=== PATIENT | male | born 1980 | race Two or more races ===

== ENCOUNTER 2017-08-27 15:20 | Emergency (ER) | payer BC, OTHER ==
[2017-08-27 15:20] VITALS: BP 126/93
[~2017-08-27 15:20] MED LIST: MELO7.5T29 PO
[2017-08-27] MEDS ORDERED: IV NORMAL SALINE 1,000ML 1,000 ML IV ONE (15:45)
--- NOTE | 2017-08-27 15:57 | RAD ---
Portable chest, 08/27/2017: HISTORY: Syncope, shortness of breath The heart size and pulmonary vascularity are normal. No pulmonary infiltrate is seen. There is no evidence of pleural fluid. IMPRESSION: No acute cardiopulmonary abnormality is detected. Electronically signed by: Marck Wray MD (08/27/2017 3:54 PM) [facility]
[2017-08-27 15:58] LABS: BASO # 0.1 x10^3/uL (0.0-0.2); BASO % 1 % (0-3); EOS # 0.2 x10^3/uL (0.0-0.7); EOS % 2 % (0-3); HEMATOCRIT 41.9 % (39.0-53.0); HEMOGLOBIN 13.9 g/dL (13.0-17.5); LYMPH % 18 % (24-48); MEAN CORPUSCULAR HEMOGLOBIN 27 pg (25-35); MEAN CORPUSCULAR HGB CONC 33 g/dL (31-37); MEAN CORPUSCULAR VOLUME 81 fL (79-100); MONO # 0.5 x10^3/uL (0.0-1.1); MONO % 5 % (0-9); NEUT % 74 % (31-73); PLATELET COUNT 296 x10^3/uL (140-400); RED BLOOD COUNT 5.15 x10^6/uL (4.30-5.70); RED CELL DISTRIBUTION WIDTH 14.8 % (11.5-14.5); WHITE BLOOD COUNT 10.7 x10^3/uL (4.0-11.0)
[2017-08-27 16:11] LABS: ALBUMIN 4.5 g/dL (3.4-5.0); ALBUMIN/GLOBULIN RATIO 1.3 (1.0-1.7); CALCIUM 9.4 mg/dL (8.5-10.1); CREATININE 1.6 mg/dL (0.7-1.3); GFR 48.4; POTASSIUM 4.2 mmol/L (3.5-5.1); TOTAL BILIRUBIN 0.6 mg/dL (0.2-1.0)
--- NOTE | 2017-08-27 16:37 | ED.ADGEN ---
Past History Past Medical History: Hypertension Past Surgical History: Knee Replacement Alcohol Use: None Drug Use: None Adult General Chief Complaint Chief Complaint Hypertension HPI HPI Patient is a 37-year-old male who presents with altered mental status, decreased mental status sonorous respirations per family members. EMS were contacted us patient appeared to have sonorous respirations with prolonged pauses and was difficult to arouse. Patient to being diagnosed with obstructive sleep apnea states he was told he snores heavy with frequent pauses. Patient reported to be hypoxic and hypercapnic on EMS arrival. Return to baseline mental status and ED. Patient states he did not sleep well last evening felt fatigued this morning. Went to work and came home this afternoon and took oxycodone prior to going to bed. Patient states this is different than his normal routine. Patient reports having surgical pins removed from his left tibia 3 weeks ago. He states symptoms have largely improved but he has been on his feet pulses in required and oxycodone. Denies chest pain, shortness of breath palpitations, headache. No history of DVT or PE. Denies tongue laceration , loss of bowel or bladder movement. No other acute symptoms or complaints.[] Review of Systems Review of Systems History of symptoms as per history of present illness. All other review symptoms are negative. All other systems were reviewed and found to be within normal limits, except as documented in this note. Current Medications Current Medications Current Medications Medications (Trade) Dose Ordered Sig/Juany Start Time Stop Time Status Last Admin Dose Admin Sodium Chloride 1,000 ml @ 1,000 mls/hr 1X ONCE 08/27/17 15:45 08/27/17 16:44 DC 08/27/17 15:45 1,000 MLS/HR Allergies Allergies Allergies Coded Allergies Type Severity Reaction Last Updated Verified No Known Drug Allergies 02/03/15 No Physical Exam Physical Exam Constitutional: Well developed, well nourished, no acute distress, non-toxic appearance. [] HENT: Normocephalic, bilateral external ears normal, oropharynx moist, no oral exudates, nose normal. [] Eyes: PERRLA, EOMI, conjunctiva normal, no discharge. [] Neck: Normal range of motion, no tenderness, supple, no stridor. [] Cardiovascular:Heart rate regular rhythm, no murmur [] Lungs & Thorax: Bilateral breath sounds clear to auscultation [] Abdomen: Bowel sounds normal, soft, no tenderness, no masses, no pulsatile masses. [] Skin: Warm, dry, no erythema, no rash. [] Back: No tenderness, no CVA tenderness. [] Extremities: Left leg, healing surgical incision from pain removal, negative Homans signs. Headache[] Neurologic: Alert and oriented X 3, normal motor function, normal sensory function, no focal deficits noted. [] Psychologic: Affect normal, judgement normal, mood normal. [] Current Patient Data Lab Results Laboratory Tests Test 08/27/17 15:45 White Blood Count 10.7 x10^3/uL (4.0-11.0) Red Blood Count 5.15 x10^6/uL (4.30-5.70) Hemoglobin 13.9 g/dL (13.0-17.5) Hematocrit 41.9 % (39.0-53.0) Mean Corpuscular Volume 81 fL (79-100) Mean Corpuscular Hemoglobin 27 pg (25-35) Mean Corpuscular Hemoglobin Concent 33 g/dL (31-37) Red Cell Distribution Width 14.8 % (11.5-14.5) H Platelet Count 296 x10^3/uL (140-400) Neutrophils (%) (Auto) 74 % (31-73) H Lymphocytes (%) (Auto) 18 % (24-48) L Monocytes (%) (Auto) 5 % (0-9) Eosinophils (%) (Auto) 2 % (0-3) Basophils (%) (Auto) 1 % (0-3) Neutrophils # (Auto) 8.0 x10^3uL (1.8-7.7) H Lymphocytes # (Auto) 2.0 x10^3/uL (1.0-4.8) Monocytes # (Auto) 0.5 x10^3/uL (0.0-1.1) Eosinophils # (Auto) 0.2 x10^3/uL (0.0-0.7) Basophils # (Auto) 0.1 x10^3/uL (0.0-0.2) D-Dimer (Martina) 0.51 mg/L (0.00-0.50) H Sodium Level 144 mmol/L (136-145) Potassium Level 4.2 mmol/L (3.5-5.1) Chloride Level 107 mmol/L (98-107) Carbon Dioxide Level 27 mmol/L (21-32) Anion Gap 10 (6-14) Blood Urea Nitrogen 19 mg/dL (8-26) Creatinine 1.6 mg/dL (0.7-1.3) H Estimated GFR (Cockcroft-Gault) 48.4 BUN/Creatinine Ratio 12 (6-20) Glucose Level 270 mg/dL (70-99) H Calcium Level 9.4 mg/dL (8.5-10.1) Total Bilirubin 0.6 mg/dL (0.2-1.0) Aspartate Amino Transferase (AST) 28 U/L (15-37) Alanine Aminotransferase (ALT) 60 U/L (16-63) Alkaline Phosphatase 84 U/L (46-116) Creatine Kinase 132 U/L (39-308) Total Protein 8.0 g/dL (6.4-8.2) Albumin 4.5 g/dL (3.4-5.0) Albumin/Globulin Ratio 1.3 (1.0-1.7) EKG EKG [EKG: NAD] Radiology/Procedures Radiology/Procedures CXR: NAD [] Course & Med Decision Making Course & Med Decision Making Pertinent Labs and Imaging studies reviewed. (See chart for details) [Stable vital signs in the emergency department with return to baseline mental status. Lab work reviewed. Suspect symptoms are likely related to combination of sleep apnea narcotic pain medication. Admission offered for further evaluation and treatment. Patient declines admission states he feels great and does not currently have any symptoms. Agrees to follow-up with local primary care physician and to return should symptoms worsen.] Final Impression Final Impression [1. Altered mental status 2. hypoxia while sleeping] Dragon Disclaimer Dragon Disclaimer This electronic medical record was generated, in whole or in part, using a voice recognition dictation system. TANG POLLARD DO August 27, 2017 16:37
== END 2017-08-27 17:05 | disposition home or self-care (01) ==
LOC: ER 15:20
DX: R41.82 Altered mental status, unspecified (principal); R09.02 Hypoxemia; I10 Essential (primary) hypertension; G47.33 Obstructive sleep apnea (adult) (pediatric)
CPT/HCPCS: 36415; 71045; 80053; 82550; 84146; 85025; 85379; 96360; 99285-25; J7030

== ENCOUNTER 2017-11-15 16:26 | Inpatient (IN) | payer OTHER ==
[~2017-11-15] VITALS: Ht 185.4 cm; Wt 144.7 kg
[2017-11-15] MEDS ORDERED: dilTIAZem 25 MG/5 ML VIAL ONE (16:36)
[2017-11-15] MEDS ORDERED: IV NORMAL SALINE 500ML 500 ML IV ONE (16:45)
--- NOTE | 2017-11-15 16:51 | EKG ---
[address] [address] Test Date: 2017-11-15 Test Time: 16:32:59 Pat Name: BARBARA RECINOS Department: Room: Gender: M Disability Examiner: : 1980 Requested By: DANETTE LEWIS Order Number: [id number] Reading MD: Measurements Intervals Independence Rate: 168 P: SD: QRS: -19 QRSD: 90 T: 52 QT: 282 QTc: 478 Interpretive Statements IRREGULAR RHYTHM, NO P-WAVE FOUND LEFTWARD AXIS LOW LIMB LEAD VOLTAGE QRS(T) CONTOUR ABNORMALITY CONSIDER ANTEROSEPTAL MYOCARDIAL DAMAGE POSSIBLY ABNORMAL ECG RI6.01 Unconfirmed report No previous ECG available for comparison
[2017-11-15 16:54] LABS: BASO % 1 % (0-3); EOS # 0.1 x10^3/uL (0.0-0.7); EOS % 1 % (0-3); HEMATOCRIT 41.4 % (39.0-53.0); HEMOGLOBIN 13.4 g/dL (13.0-17.5); LYMPH # 1.7 x10^3/uL (1.0-4.8); LYMPH % 25 % (24-48); MEAN CORPUSCULAR HEMOGLOBIN 26 pg (25-35); MEAN CORPUSCULAR HGB CONC 33 g/dL (31-37); MEAN CORPUSCULAR VOLUME 80 fL (79-100); MONO # 0.7 x10^3/uL (0.0-1.1); MONO % 10 % (0-9); NEUT # 4.1 x10^3uL (1.8-7.7); NEUT % 62 % (31-73); PLATELET COUNT 246 x10^3/uL (140-400); RED BLOOD COUNT 5.17 x10^6/uL (4.30-5.70); RED CELL DISTRIBUTION WIDTH 15.4 % (11.5-14.5); WHITE BLOOD COUNT 6.5 x10^3/uL (4.0-11.0)
[2017-11-15] MEDS ORDERED: dilTIAZem VIAL 125 MG in IV DEXTROSE 5% 100 ML IV ONE ×4 (17:00)
[2017-11-15] MEDS ORDERED: dilTIAZem 25 MG/5 ML VIAL IVP ONE (17:00)
--- NOTE | 2017-11-15 17:04 | RAD ---
Portable chest, 11/15/2017: HISTORY: Atrial fibrillation Comparison is made to a study from 08/27/2017. The heart size is within normal limits. There is mild tortuosity of the thoracic aorta. No pulmonary infiltrate is seen. There is no evidence of pleural fluid. IMPRESSION: No acute cardiopulmonary abnormality is detected. Electronically signed by: Marck Wray MD (11/15/2017 5:00 PM) [facility]
--- NOTE | 2017-11-15 17:07 | PHYS DOC ---
Past History Past Medical History: Diabetes, High Cholesterol, Hypertension Past Surgical History: Knee Replacement Alcohol Use: Rarely Drug Use: Marijuana Adult General Chief Complaint Chief Complaint: Palpitations HPI HPI 37-year-old male patient with history of hypertension, dyslipidemia and diabetes mellitus complaining of intermittent episodes of palpitation for the last 1 week that usually lasts about 10 to 20 minutes and happens several times a day without chest pain, dizziness, weakness, nausea, shortness of breath, focal neuro deficit. Patient denies using drugs or alcohol or overusing caffeine. Patient does not not have history of arrhythmia. Patient had appointment with his primary care physician for this problem tomorrow but his mother recommended to come to ER for more evaluation. Review of Systems Review of Systems Constitutional: Denies fever or chills [] Eyes: Denies change in visual acuity, redness, or eye pain [] HENT: Denies nasal congestion or sore throat [] Respiratory: Denies cough or shortness of breath [] Cardiovascular: No additional information not addressed in HPI [] GI: Denies abdominal pain, nausea, vomiting, bloody stools or diarrhea [] : Denies dysuria or hematuria [] Musculoskeletal: Denies back pain or joint pain [] Integument: Denies rash or skin lesions [] Neurologic: Denies headache, focal weakness or sensory changes [] Endocrine: Denies polyuria or polydipsia [] All other systems were reviewed and found to be within normal limits, except as documented in this note. Current Medications Current Medications Current Medications Medications (Trade) Dose Ordered Sig/Juany Start Time Stop Time Status Last Admin Dose Admin Diltiazem HCl (Cardizem) 25 mg STK-MED ONCE 11/15/17 16:36 11/15/17 16:37 DC Diltiazem HCl 125 mg/Dextrose 125 ml @ 5 mls/hr 1X ONCE 11/15/17 17:00 11/16/17 17:59 11/15/17 17:01 5 MLS/HR Sodium Chloride 500 ml @ 0 mls/hr 1X ONCE 11/15/17 16:45 11/15/17 16:47 DC 11/15/17 16:45 999 MLS/HR Allergies Allergies Allergies Coded Allergies Type Severity Reaction Last Updated Verified No Known Drug Allergies 11/15/17 No Physical Exam Physical Exam Constitutional: Well developed, well nourished, no acute distress, non-toxic appearance, morbidly obese. [] HENT: Normocephalic, atraumatic, oropharynx moist, no oral exudates, nose normal. [] Eyes: PERRLA, EOMI, conjunctiva normal, no discharge. [] Neck: Normal range of motion, no tenderness, supple, no stridor. [] Cardiovascular: Irregularly irregular with tachycardia, no murmur [] Lungs & Thorax: Bilateral breath sounds clear to auscultation [] Abdomen: Bowel sounds normal, soft, no tenderness, no masses, no pulsatile masses. [] Skin: Warm, dry, no erythema, no rash. [] Back: No tenderness, no CVA tenderness. [] Extremities: No tenderness, no cyanosis, no clubbing, ROM intact, no edema. [] Neurologic: Alert and oriented X 3, normal motor function, normal sensory function, no focal deficits noted. [] Psychologic: Affect normal, judgement normal, mood normal. [] Current Patient Data Vital Signs Vital Signs Date Time Temp Pulse Resp B/P (MAP) Pulse Ox O2 Delivery O2 Flow Rate FiO2 11/15/17 16:45 178 164/106 11/15/17 16:28 98.1 18 96 Room Air Lab Results Laboratory Tests Test 11/15/17 16:40 White Blood Count 6.5 x10^3/uL (4.0-11.0) Red Blood Count 5.17 x10^6/uL (4.30-5.70) Hemoglobin 13.4 g/dL (13.0-17.5) Hematocrit 41.4 % (39.0-53.0) Mean Corpuscular Volume 80 fL (79-100) Mean Corpuscular Hemoglobin 26 pg (25-35) Mean Corpuscular Hemoglobin Concent 33 g/dL (31-37) Red Cell Distribution Width 15.4 % (11.5-14.5) H Platelet Count 246 x10^3/uL (140-400) Neutrophils (%) (Auto) 62 % (31-73) Lymphocytes (%) (Auto) 25 % (24-48) Monocytes (%) (Auto) 10 % (0-9) H Eosinophils (%) (Auto) 1 % (0-3) Basophils (%) (Auto) 1 % (0-3) Neutrophils # (Auto) 4.1 x10^3uL (1.8-7.7) Lymphocytes # (Auto) 1.7 x10^3/uL (1.0-4.8) Monocytes # (Auto) 0.7 x10^3/uL (0.0-1.1) Eosinophils # (Auto) 0.1 x10^3/uL (0.0-0.7) Basophils # (Auto) 0.0 x10^3/uL (0.0-0.2) EKG EKG EKG interpreted by me. EKG at 1632 showed atrial flutter patient with RVR at rate of 168, left powers axis, no QRS or take, poor R-wave progress in anteroseptal leads Radiology/Procedures Radiology/Procedures [[address] [address] IMAGING REPORT Signed PATIENT: BARBARA RECINOS ACCOUNT: [id number] : 1980 LOCATION: ER AGE: 37 SEX: M EXAM STATUS: REG ER ORD. PHYSICIAN: DANETTE LEWIS MD REASON: atrial fibrillation with RVR PROCEDURE: PORTABLE CHEST 1V Portable chest, 11/15/2017: HISTORY: Atrial fibrillation Comparison is made to a study from 08/27/2017. The heart size is within normal limits. There is mild tortuosity of the thoracic aorta. No pulmonary infiltrate is seen. There is no evidence of pleural fluid. IMPRESSION: No acute cardiopulmonary abnormality is detected. Electronically signed by: Marck Wray MD (11/15/2017 5:00 PM) [facility] DICTATED AND SIGNED BY: MARCK WRAY MD DATE: 11/15/17 1659 CC: DANETTE LEWIS MD; TITO AGUILERA ~ ] Course & Med Decision Making Course & Med Decision Making Pertinent Labs and Imaging studies reviewed. (See chart for details) Evaluation of patient in ER showed 37-year-old male patient with morbid obesity and multiple medical problems complaining of intermittent episodes of palpitation without other symptoms. Patient had atrial fibrillation with RVR at rate of 170s with a stable blood pressure and treated with Cardizem bolus and drip with decrease of heart rate to 130s. Patient had mild elevation of BNP and positive drug screen for marijuana and opiate. Dr. Chapa was informed at 1645 and agreed with plan of admission. Patient and his family informed about plan of care and needs for admission. [] Dragon Disclaimer Dragon Disclaimer This electronic medical record was generated, in whole or in part, using a voice recognition dictation system. Departure Departure: Impression: Primary Impression: Atrial fibrillation with RVR Additional Impressions: Elevated brain natriuretic peptide (BNP) level Diabetes mellitus Morbid obesity Marijuana abuse Disposition: 09 ADMITTED INPATIENT (at 1646) Admitting Physician: Mary Chapa (accepted admission at 1646) Condition: GUARDED Referrals: TITO AGUILERA (PCP) Problem Qualifiers DANETTE LEWIS MD Nov 15, 2017 17:07
[2017-11-15 17:23] LABS: ALBUMIN/GLOBULIN RATIO 1.1 (1.0-1.7); CALCIUM 9.2 mg/dL (8.5-10.1); CREATININE 1.1 mg/dL (0.7-1.3); GFR 74.5; MAGNESIUM 1.8 mg/dL (1.8-2.4); POTASSIUM 3.7 mmol/L (3.5-5.1); TOTAL BILIRUBIN 1.9 mg/dL (0.2-1.0); TOTAL PROTEIN 7.8 g/dL (6.4-8.2)
[2017-11-15 20:30] VITALS: BP 130/101
[2017-11-15] MEDS ORDERED: CLON1PAT3 TD (20:53)
[2017-11-15] MEDS ORDERED: AMLO10TA2 PO (20:58)
[2017-11-15] MEDS ORDERED: METF10003 PO (20:58)
[2017-11-15] MEDS ORDERED: IRBE300T3 PO (20:58)
[2017-11-15 21:30] VITALS: BP 166/112
[2017-11-15 22:30] VITALS: BP 155/110
[2017-11-15 23:31] LABS: AMPHETAMINE/METHAMPHETAMINE NEG (NEG); BARBITURATES NEG (NEG); BENZODIAZEPINES NEG (NEG); CANNABINOIDS POS (NEG); COCAINE NEG (NEG); METHADONE NEG (NEG); OPIATES POS (NEG); PHENCYCLIDINE NEG (NEG)
[2017-11-16] VITALS (12 sets, daily range): BP systolic 135–170; BP diastolic 87–103
[2017-11-16] MEDS ORDERED: dilTIAZem VIAL 125 MG in IV DEXTROSE 5% 100 ML IV PRN (01:30)
[2017-11-16] MEDS ORDERED: metFORMIN 500 MG TABLET PO SCH (08:00)
[2017-11-16] MEDS ORDERED: LOSARTAN 50 MG TABLET. PO SCH (09:00)
[2017-11-16] MEDS ORDERED: amLODIPine BESYLATE 10 MG TABLET PO SCH (09:00)
--- NOTE | 2017-11-16 09:29 | PDOC2 ---
CONSULT Date of Admission DATE: 11/16/17 TIME: 09:13 Reason for Consult: atrial fibrillation with RVR Problem List Problems Medical Problems: (1) Atrial fibrillation with RVR Status: Acute (2) Diabetes mellitus Status: Acute (3) Elevated brain natriuretic peptide (BNP) level Status: Acute (4) Marijuana abuse Status: Acute (5) Morbid obesity Status: Acute History of Present Illness Mr Garcia is a 37 year old male with history of hypertension and diabetes who presented to the ED for evaluation of palpitations. He reports racing of his heart off and on for a week. He was convinced to present for evaluation by his mother. He denies any chest discomfort, dyspnea, lightheadedness or syncope. He denies any congestive symptoms and regularly sleeps on 1-2 pillows for comfort. He denies any new issues with functionality though he reports being somewhat limited due to knee pain. He was found to be positive on his UDS for opiates and THC. He reports taking opiates for his knee pain but denies any use of amphetamines or cocaine. Cardiovascular: HTN Endocrine: Diabetes Past Surgical History left knee surgery otherwise negative Family History father SCD at age 47 but he is unsure of the underlying cause. He denies any other significant history. Social History non smoker, denies ETOH, admits to opiate and marijuana use. Current Medications Current Medications Diltiazem HCl (Cardizem) 20 mg 1X ONCE IVP Last administered on 11/15/17at 16:45 ; Start 11/15/17 at 17:00; Stop 11/15/17 at 17:01; Status DC Sodium Chloride 500 ml @ 0 mls/hr 1X ONCE IV Last administered on 11/15/17at 16: 45; Start 11/15/17 at 16:45; Stop 11/15/17 at 16:47; Status DC Diltiazem HCl (Cardizem) 25 mg STK-MED ONCE .ROUTE ; Start 11/15/17 at 16:36; Stop 11/15/17 at 16:37; Status DC Diltiazem HCl 125 mg/Dextrose 125 ml @ 5 mls/hr 1X ONCE IV ; Start 11/15/17 at 17:00; Stop 11/15/17 at 17:00; Status DC Diltiazem HCl 125 mg/Dextrose 125 ml @ 5 mls/hr 1X ONCE IV Last administered on 11/15/17at 17:01; Start 11/15/17 at 17:00; Stop 11/16/17 at 17:59 Diltiazem HCl 125 mg/Dextrose 125 ml @ 5 mls/hr CONT PRN IV SEE I/O RECORD Last administered on 11/16/17at 01:28; Start 11/16/17 at 01:30 Amlodipine Besylate (Norvasc) 10 mg DAILY PO Last administered on 11/16/17at 07: 59; Start 11/16/17 at 09:00 Clonidine HCl (Catapres Tts-3) 1 patch WEEKLY TD ; Start 11/20/17 at 09:00 Losartan Potassium (Cozaar) 100 mg DAILY PO Last administered on 11/16/17at 07:59 ; Start 11/16/17 at 09:00 Metformin HCl (Glucophage) 1,000 mg BIDWMEALS PO Last administered on 11/16/17at 07:59; Start 11/16/17 at 08:00 Active Scripts Active Reported Amlodipine Besylate 10 Mg Tablet 1 Tab PO DAILY Irbesartan 300 Mg Tablet 1 Tab PO DAILY Metformin Hcl 1,000 Mg Tablet 1 Tab PO BID Clonidine Tts-3 (Clonidine) 1 Each Patch.tdwk 1 Patch TD WEEKLY Allergies: Coded Allergies: No Known Drug Allergies (Unverified , 11/15/17) Review of System as per HPI or negative General: Alert, Oriented X3, Cooperative, No acute distress HEENT: Atraumatic, EOMI, Mucous membr. moist/pink Lungs: Clear to auscultation, Normal air movement Heart: Regular rate, Normal S1, Normal S2, No murmurs Abdomen: Normal bowel sounds, Soft, No tenderness Extremities: No cyanosis, No edema, Normal pulses Neuro: Normal speech, Strength at 5/5 X4 ext Psych/Mental Status: Mental status NL, Mood NL VITALS Vital Signs Date Time Temp Pulse Resp B/P (MAP) Pulse Ox O2 Delivery O2 Flow Rate FiO2 11/16/17 09:04 126 143/92 (109) 11/16/17 08:13 Room Air 11/16/17 06:00 18 94 11/15/17 20:30 98.4 11/15/17 18:38 2.0 Labs Laboratory Tests Test 11/15/17 16:40 11/15/17 17:04 11/15/17 20:30 11/15/17 22:42 White Blood Count 6.5 x10^3/uL (4.0-11.0) Red Blood Count 5.17 x10^6/uL (4.30-5.70) Hemoglobin 13.4 g/dL (13.0-17.5) Hematocrit 41.4 % (39.0-53.0) Mean Corpuscular Volume 80 fL (79-100) Mean Corpuscular Hemoglobin 26 pg (25-35) Mean Corpuscular Hemoglobin Concent 33 g/dL (31-37) Red Cell Distribution Width 15.4 % (11.5-14.5) Platelet Count 246 x10^3/uL (140-400) Neutrophils (%) (Auto) 62 % (31-73) Lymphocytes (%) (Auto) 25 % (24-48) Monocytes (%) (Auto) 10 % (0-9) Eosinophils (%) (Auto) 1 % (0-3) Basophils (%) (Auto) 1 % (0-3) Neutrophils # (Auto) 4.1 x10^3uL (1.8-7.7) Lymphocytes # (Auto) 1.7 x10^3/uL (1.0-4.8) Monocytes # (Auto) 0.7 x10^3/uL (0.0-1.1) Eosinophils # (Auto) 0.1 x10^3/uL (0.0-0.7) Basophils # (Auto) 0.0 x10^3/uL (0.0-0.2) Prothrombin Time 12.2 SEC (9.4-11.4) Prothromb Time International Ratio 1.2 (0.9-1.1) Sodium Level 139 mmol/L (136-145) Potassium Level 3.7 mmol/L (3.5-5.1) Chloride Level 104 mmol/L (98-107) Carbon Dioxide Level 26 mmol/L (21-32) Anion Gap 9 (6-14) Blood Urea Nitrogen 10 mg/dL (8-26) Creatinine 1.1 mg/dL (0.7-1.3) Estimated GFR (Cockcroft-Gault) 74.5 BUN/Creatinine Ratio 9 (6-20) Glucose Level 115 mg/dL (70-99) Calcium Level 9.2 mg/dL (8.5-10.1) Magnesium Level 1.8 mg/dL (1.8-2.4) Total Bilirubin 1.9 mg/dL (0.2-1.0) Aspartate Amino Transf (AST/SGOT) 27 U/L (15-37) Alanine Aminotransferase (ALT/SGPT) 33 U/L (16-63) Alkaline Phosphatase 79 U/L (46-116) Creatine Kinase 97 U/L (39-308) Creatine Kinase MB (Mass) 1.8 ng/mL (0.0-3.6) Creatine Kinase MB Relative Index 1.9 % (0-4) Troponin I Quantitative 0.020 ng/mL (0-0.055) < 0.017 ng/mL (0-0.055) EF-Gdu-W-Type Natriuretic Peptide 2088 pg/mL (0-124) Total Protein 7.8 g/dL (6.4-8.2) Albumin 4.0 g/dL (3.4-5.0) Albumin/Globulin Ratio 1.1 (1.0-1.7) Glucose (Fingerstick) 118 mg/dL (70-99) Urine Opiates Screen Pos (NEG) Urine Methadone Screen Neg (NEG) Urine Barbiturates Neg (NEG) Urine Phencyclidine Screen Neg (NEG) Urine Amphetamine/Methamphetamine Neg (NEG) Urine Benzodiazepines Screen Neg (NEG) Urine Cocaine Screen Neg (NEG) Urine Cannabinoids Screen Pos (NEG) Urine Ethyl Alcohol Neg (NEG) Test 11/15/17 23:55 Troponin I Quantitative < 0.017 ng/mL (0-0.055) Images CXR - no acute abn EKG - atrial fibrillation with RVR Assessment/Plan 1. Atrial fibrillation with RVR unknown duration - Continue cardizem, add metoprolol and 1x digoxin. Add Eliquis for stroke prophylaxis. Check echocardiogram. Plan for MCT on discharge to evaluate AF burden. 2. elevated BNP - no pulmonary congestion on CXR 3. accelerated hypertension - on multiple meds 4. diabetes mellitus - per IM 5. substance abuse - cessation encouraged. SUNNY DARBY APRN Nov 16, 2017 09:29
[2017-11-16] MEDS ORDERED: DIGOXIN IV 500 MCG/2 ML AMPUL. IV ONE (09:30)
[2017-11-16] MEDS ORDERED: APIXABAN 5 MG TABLET. PO SCH (10:00)
[2017-11-16] MEDS ORDERED: METOPROLOL TART IMMED RELEASE 25 MG TABLET PO SCH (10:00)
--- NOTE | 2017-11-16 15:41 | HP ---
ADMIT DATE: 11/15/2017 HISTORY OF PRESENT ILLNESS: The patient is a 37-year-old male patient who basically came to the Emergency Room complaining of intermittent episode of chest pain, palpitation. This has been going on for more than a week now, lasts about 10-20 minutes and happens several times a day without any chest pain, dizziness, weakness, nausea, shortness of breath, focal neurological deficit. He denied using any drugs or alcohol or over using caffeine. The patient does not have history of arrhythmia. He has had an appointment with his primary care physician for this problem; however, his mother urged him to come to the Emergency Room for more evaluation. In the Emergency Room, he was found to be in atrial fibrillation with rapid ventricular response for which he was started on Cardizem drip and was admitted to the ICU to continue with the Cardizem drip and start him on blood thinner and to consult the cardiology team. PAST MEDICAL HISTORY: Significant for hypertension, hyperlipidemia, and type 2 diabetes mellitus. PAST SURGICAL HISTORY: Significant for left knee surgery. ALLERGIES: He has no known drug allergies. MEDICATIONS: He is currently on following medications: He is on clonidine TTS 3 patch, 1 patch transdermal weekly; amlodipine besylate 10 mg once a day; irbesartan 300 mg daily and metformin 1000 mg p.o. b.i.d. FAMILY HISTORY: He has 3 sisters, all older. His oldest sister has hypothyroidism, obstructive sleep apnea and atrial fibrillation. The other two sisters are healthy. His father at the age of 47 because of massive heart attack. Mother is still alive at age of 62, is known to have bronchial asthma, diabetes mellitus, and COPD. SOCIAL HISTORY: He chews tobacco, smokes marijuana. Does not drink alcohol or use recreational drugs except that the marijuana. He works for a [employer] company. REVIEW OF SYSTEMS: The patient denied any blurring of vision, cataract, glaucoma or macular degeneration. Denied any earache, tinnitus or sensorineural deafness. Denied any nosebleeds, stuffy nose or postnasal drip. Denied any sore throat, sore tongue, toothache, hoarseness of voice or difficulty swallowing. Denied any nausea, vomiting, diarrhea or constipation. Denied any hematemesis, melena or hematochezia. Denied any dysuria, frequency or hematuria. Denied any chest pain, shortness of breath, orthopnea, paroxysmal nocturnal dyspnea. Denied any cough, phlegm or hemoptysis. Denied any dizziness, lightheadedness, or vertigo. Denied any chills, rigors, or fever. PHYSICAL EXAMINATION: GENERAL: On arrival to the Emergency Room, he looked well and was clearly in no apparent respiratory distress. VITAL SIGNS: His heart rate was up to 168, blood pressure 164/106, temperature was 98.1, respiratory rate was 18 and oxygen saturation was 96%. HEAD, EYES, EARS, NOSE, AND THROAT: Showed normocephalic, atraumatic. NECK: Supple. HEART: Regular first heart sound. Normal second heart sound with no gallop, rub or murmur. CHEST: Shows central trachea, equal bilateral expansion, air entry, vesicular sounds. No crepitation or rhonchi. ABDOMEN: Distended, soft, nontender. NEUROLOGIC: He is awake, alert, responding appropriately. Cranial nerves are intact. EXTREMITIES: He moves extremities without difficulty, ambulates without assistance or assistive devices. LABORATORY DATA: Showed serum sodium 139, potassium 3.7, chloride 104, bicarbonate 26, anion gap of 9, BUN 10, creatinine 1.1, estimated GFR was 74 mL per minute, his glucose was 115, calcium was 9.2. Total magnesium was 1.8. Total bilirubin is 1.9. AST, ALT, alkaline phosphatase were normal. His beta natriuretic peptide was 2088, troponin showed 0.020. His total protein was 7.8, albumin 4. White cell count was 6500, hemoglobin 13, hematocrit 41, MCV 80, and platelet count 246,000 with normal manual differential. Prothrombin time was 12.3, INR 1.2. Toxic screen was positive for opiates and cannabinoids; was negative for methadone, barbiturates, phencyclidine, methamphetamine, amphetamine, benzodiazepine, cocaine, and alcohol. His chest x-ray showed that the heart size is within normal limits. There is mild tortuosity of the thoracic aorta, no pulmonary infiltrates are seen. There is no evidence of pleural fluid. His EKG showed that he was in atrial flutter with RVR at a rate of 168 beats per minute, leftward axis deviation. No QRS. No ST segment elevation or depression and poor R-wave progression in the anteroseptal leads. ASSESSMENT AND PLAN: The patient was admitted with atrial fibrillation with rapid ventricular response. He has also had morbid obesity, marijuana abuse, diabetes mellitus, hyperlipidemia, and hypertension. He was given a bolus of Cardizem, was started on Cardizem drip and was admitted to the ICU to control the heart rate, start him on a blood thinner, to consult the cardiology team, to check his fasting lipid profile. MARCELLA MIDDLETON MD DR: MARKUS/yelitza JOB#: [id number] / [id number]
--- NOTE | 2017-11-16 19:24 | CARD ---
MR#: [id number] Date of Study: 11/16/2017 Ordering Physician: SUNNY DARBY, Referring Physician: MARCELLA MIDDLETON Tech: Nilsa Fuentes RDCS APPROVED REPORT EXAM: Two-dimensional and M-mode echocardiogram with Doppler and color Doppler. Other Information Quality : Good INDICATION Chest Pain 2D DIMENSIONS RVDd3.7 (2.9-3.5cm)Left Atrium(2D)5.2 (1.6-4.0cm) IVSd1.7 (0.7-1.1cm)Aortic Root(2D)3.7 (2.0-3.7cm) LVDd6.4 (3.9-5.9cm)LVOT Diameter2.7 (1.8-2.4cm) PWd1.7 (0.7-1.1cm)LVDs5.3 (2.5-4.0cm) FS (%) 20.0 %SV71.9 ml Aortic Valve AoV Peak Min.140.1cm/sAoV VTI20.2cm AO Peak GR.7.8mmHgLVOT Peak Min.139.3cm/s LVOT VTI 25.07cmAO Mean GR.5mmHg TYLER (VMAX)5.72qb9YUT (VTI)7.15cm2 Mitral Valve MV E Ongujuwa017.9cm/sMV DECEL [id number] MV A Velocity0.6cm/sE/A Rflbm352.5 Tricuspid Valve TR P. Hnitieie024kf/sRAP [id number] TR Peak Gr.95maXnTYWW93exFg LEFT VENTRICLE The Left Ventricle is mildly dilated. There is mild concentric left ventricular hypertrophy. Left lynda tricle systolic function is moderately impaired. The Ejection Fraction is 38 to 40%. There is global hypokinesis of the left ventricle. RIGHT VENTRICLE The right ventricle is mildly dilated. The right ventricular systolic function is normal. ATRIA The left atrium is mildly dilated. The right atrium is mildly dilated. The interatrial septum is inta ct with no evidence for an atrial septal defect or patent foramen ovale as noted on 2-D or Doppler im aging. AORTIC VALVE The aortic valve is calcified but opens well. Doppler and Color Flow revealed no significant aortic r egurgitation. There is no significant aortic valvular stenosis. MITRAL VALVE The mitral valve is normal in structure and function. There is no evidence of mitral valve prolapse. There is no mitral valve stenosis. Doppler and Color-flow revealed moderate mitral regurgitation. TRICUSPID VALVE The tricuspid valve is normal in structure and function. Doppler and Color Flow revealed mild to mode rate ricuspid regurgitation. There is moderate to severe pulmonary hypertension. The PA pressure was estimated at 50 mmHg. There is no tricuspid valve stenosis. PULMONIC VALVE The pulmonic valve is not well visualized. Doppler and Color Flow revealed trace pulmonic valvular re gurgitation. There is no pulmonic valvular stenosis. GREAT VESSELS The aortic root is normal in size. The ascending aorta is mildly dilated at 3.8 cm. The IVC is dilate d and unresponsive. PERICARDIAL EFFUSION There is no evidence of significant pericardial effusion. Critical Notification Critical Value: No <Conclusion> The Left Ventricle is mildly dilated. Left ventricle systolic function is moderately impaired. The Ejection Fraction is 38 to 40%. There is global hypokinesis of the left ventricle. There is mild concentric left ventricular hypertrophy. There is no significant aortic valvular stenosis. Doppler and Color Flow revealed no significant aortic regurgitation. Doppler and Color-flow revealed moderate mitral regurgitation. Doppler and Color Flow revealed mild to moderate ricuspid regurgitation. There is moderate to severe pulmonary hypertension. The PA pressure was estimated at 50 mmHg. The ascending aorta is mildly dilated at 3.8 cm. Signed by : Darnell Murrell MD Electronically Approved : 11/16/2017 17:26:13
--- NOTE | 2017-11-17 20:50 | DS ---
DATE OF DISCHARGE: 11/16/2017 HISTORY OF PRESENT ILLNESS: The patient is a 37-year-old male patient who was admitted to the Emergency Room with a complaint of intermittent episodes of chest pain and palpitation. Apparently, this has been going on for more than a week that lasts about 10-20 minutes and happens several times a day without any chest pain, dizziness, weakness, nausea, shortness of breath, or focal neurological deficit. He denied using any drugs, alcohol, or overuse drinking caffeine. The patient has had no history of arrhythmia before. He has been an appointment with his primary care physician for this problem; however, as his symptoms worsened, he came to the Emergency Room, was found to be in atrial fibrillation with rapid ventricular response for which he was started on a Cardizem drip and was admitted to the ICU and continued the Cardizem drip. He reverted back to sinus rhythm, was seen in consultation by the Cardiology team and he was started on Eliquis and switched it to oral diltiazem. He has had an echocardiogram done, which basically showed that his left ventricle is mildly dilated. His left ventricular systolic function is moderately impaired. His ejection fraction is 38-40%, he has global hypokinesis, left ventricle with mild concentric left ventricular hypertrophy. There is no significant aortic valvular stenosis. Doppler and color flow revealed no significant aortic regurgitation, moderate mitral regurgitation, rurb-io-[id number] tricuspid regurgitation, severe pulmonary hypertension with pulmonary artery pressure was estimated at 50 mmHg. The ascending aorta is mildly dilated at 3.8 cm as he remained in sinus rhythm with a heart rate that is controlled, a decision was made to discharge him home, to follow with the Cardiology team as an outpatient. PHYSICAL EXAMINATION: GENERAL: When I saw him prior to discharge, he looked well and was clearly in no apparent respiratory distress. No pallor, jaundice, cyanosis, or thyromegaly. No jugular venous distension. No lower limb edema. VITAL SIGNS: His heart rate was 94, blood pressure was 141/102, his temperature was 97.6, respiratory rate was 18, and his oxygen saturation was 94% on room air. HEAD, EYES, EARS, NOSE AND THROAT: Showed normocephalic, atraumatic. NECK: Supple. HEART: Showed normal first and second heart sounds with no gallop, rub or murmur. CHEST: Clear to auscultation. No crepitation or rhonchi. ABDOMEN: Distended, soft, nontender. No guarding or rigidity. No organomegaly. Hernial orifice intact. Bowel sounds normal. NEUROLOGIC: He was awake, alert, responding appropriately. Cranial nerves intact. EXTREMITIES: He moves extremities without difficulty, ambulates without assistance or assistive devices. LABORATORY DATA: Showed that his serum sodium was 139, potassium 3.7, chloride 104, bicarbonate 26, anion gap of 9, BUN 10, creatinine 1.1, estimated GFR was 74 mL per minute, his glucose 115, calcium was 9.2, magnesium was 1.8. Total bilirubin 1.9. AST, ALT, alkaline phosphatase were normal. His beta natriuretic peptide was 2200. Total protein was 7.8, albumin was 4. His prothrombin time was 12.2, INR 1.2. His toxicology screen was positive for opiates and cannabinoids, was negative for methadone, barbiturates, phencyclidine, amphetamine, methamphetamine, benzodiazepine, cocaine or alcohol. His nasal screen for MRSA by PCR was negative. His chest x-ray showed that the heart size is within normal limit. There is mild tortuosity of the thoracic aorta, no pulmonary infiltrate is seen. There is no evidence of pleural fluid. DISCHARGE MEDICATIONS: He was discharged home to continue with amlodipine besylate 10 mg once a day, clonidine TTS 3 one tablet once a week, irbesartan 300 mg once a day, metformin 1000 mg twice a day. He was also discharged on diltiazem 240 mg once a day, apixaban 5 mg twice a day, and metoprolol 25 mg once a day. FINAL DISCHARGE DIAGNOSIS: Atrial fibrillation with rapid ventricular response, now reverted to sinus rhythm. OTHER MEDICAL PROBLEMS: Include, 1. Hypertension. 2. Hyperlipidemia. 3. Type 2 diabetes. 4. Combined systolic, diastolic congestive heart failure. 5. Morbid obesity. MARCELLA MIDDLETON MD DR: MARKUS/yelitza JOB#: [id number] / [id number]
[2017-11-20] MEDS ORDERED: cloNIDine TTS-3 1 PATCH PATCH TD SCH (09:00)
== END 2017-11-16 16:38 | disposition home or self-care (01) | DRG 308 ==
LOC: ER 16:26 → ICU 17:03
PROVIDERS: ADMIT Internal Medicine; ATTEND Internal Medicine
DX: I48.91 Unspecified atrial fibrillation (principal); I50.43 Acute on chronic combined systolic (congestive) and diastolic (congestive) heart failure; Z68.41 Body mass index [BMI] 40.0-44.9, adult; E11.9 Type 2 diabetes mellitus without complications; E66.01 Morbid (severe) obesity due to excess calories; E78.00 Pure hypercholesterolemia, unspecified; Z96.659 Presence of unspecified artificial knee joint; F12.10 Cannabis abuse, uncomplicated; E78.5 Hyperlipidemia, unspecified; I11.0 Hypertensive heart disease with heart failure; Z82.49 Family history of ischemic heart disease and other diseases of the circulatory system; Z72.0 Tobacco use; Z83.3 Family history of diabetes mellitus; Z82.5 Family history of asthma and other chronic lower respiratory diseases
CPT/HCPCS: 36415; 71045; 80053; 80061; 80307; 82553; 82947; 83735; 83880; 84443; 84484; 85025; 85610; 87641; 93005; 93306; 96365; 96366; 96375; J1160; J3490; J7040; 99285-25; G0479

== ENCOUNTER 2018-06-22 23:41 | Inpatient (IN) | payer OTHER ==
[~2018-06-22] VITALS: Ht 186.7 cm; Wt 142.4 kg
[~2018-06-22 23:41] MED LIST changes: +AMLO10TA8 PO; +CLON1PAT3 TD; +IRBE300T3 PO; +METF10007 PO; +MIDAZOLAM HCL PF 5 MG/5 ML VIAL. ONE
[2018-06-22] MEDS ORDERED: DEXTROSE 50% 25 GM / 50ML DISP.SYRIN. IV ONE (23:46)
[2018-06-22] MEDS ORDERED: SUCCINYLCHOLINE 200 MG/10 ML VIAL. ONE (23:52)
--- NOTE | 2018-06-23 00:10 | ED.ADGEN ---
Past History Past Medical History: Diabetes, High Cholesterol, Hypertension Past Surgical History: Knee Replacement Smoking: Cigarettes, Chew Alcohol Use: Rarely Drug Use: Marijuana Adult General Chief Complaint Chief Complaint ".. I think he took too much of his heart meds... He's not responding.. and I think he was not breathing.." Pt. non-responsive to noxious stimuli, agonal, snoring breath cyanotic- Tachycardic on arrival an removal from car. HPI HPI Patient is a 38 year old male who presents with in respiratory failure. Unresponsive to noxious stimuli. Agonal snoring breaths. Was tachycardic on arrival. Patient had to be manually removed from the car. Patient required bag mask valve 100% and nasal trumpet placed. Patient eventually awakened. After 50 glucose and 2 A of Narcan. Narcan did not seem to help. See code sheet. Upon awaking patient appeared to have slurred speech but did answer questions appropriately. Did move all extremities on request. Was somewhat confused but realized he was in a hospital. . Poor historian. Pt. has had prior hx of narcotic over dosages that required narcan per . No recent travel or specific ill contacts. Recent Rt knee injury. No hx of trauma. Does have a hx of DM, HTN, Chronic pain, and Tobacco use. Review of Systems Review of Systems Poor historian- once he regained consciousness Constitutional: Denies fever or chills [] Eyes: Denies change in visual acuity, redness, or eye pain [] HENT: Denies nasal congestion or sore throat [] Respiratory: Denies cough or shortness of breath [] Cardiovascular: No additional information not addressed in HPI [] GI: Denies abdominal pain, nausea, vomiting, bloody stools or diarrhea [] : Denies dysuria or hematuria [] Musculoskeletal: Denies back pain or joint pain [] Integument: Denies rash or skin lesions [] Neurologic: Denies headache, focal weakness or sensory changes [] Endocrine: Denies polyuria or polydipsia [] All other systems were reviewed and found to be within normal limits, except as documented in this note. Family History Family History Not currently available Current Medications Current Medications Current Medications Medications (Trade) Dose Ordered Sig/Juany Start Time Stop Time Status Last Admin Dose Admin Albuterol/ Ipratropium (Duoneb) 3 ml STK-MED ONCE 06/23/18 00:42 06/23/18 00:43 DC Azithromycin (Zithromax) 500 mg 1X ONCE 06/23/18 01:30 06/23/18 01:31 DC 06/23/18 01:48 500 MG Ceftriaxone Sodium 1 gm/ Sodium Chloride 50 ml @ 100 mls/hr 1X ONCE 06/23/18 01:30 06/23/18 01:59 DC 06/23/18 01:48 100 MLS/HR Ceftriaxone Sodium (Rocephin) 1 gm STK-MED ONCE 06/23/18 01:44 06/23/18 01:45 DC Dextrose 25 gm 1X ONCE 06/23/18 03:00 06/23/18 03:01 DC 06/22/18 23:47 25 GM Lactated Ringer's 1,000 ml @ 75 mls/hr 1X ONCE 06/23/18 03:00 06/23/18 16:19 06/23/18 03:18 75 MLS/HR Ondansetron HCl (Zofran) 4 mg PRN Q4HRS PRN 06/23/18 01:30 06/24/18 01:29 Sodium Chloride 1,000 ml @ 1,000 mls/hr 1X ONCE 06/23/18 02:30 06/23/18 03:29 DC 06/23/18 02:21 1,000 MLS/HR Succinylcholine Chloride (Anectine) 200 mg STK-MED ONCE 06/22/18 23:52 06/22/18 23:53 DC Allergies Allergies Allergies Coded Allergies Type Severity Reaction Last Updated Verified No Known Drug Allergies 11/15/17 No Physical Exam Physical Exam Constitutional: in acute respiratory distress, overly sedated in appearance. [] HENT: Normocephalic, atraumatic, bilateral external ears normal, oropharynx moist, no oral exudates, nose normal. [] Eyes: PERRLA, EOMI, conjunctiva normal, no discharge. [] Pin point . Neck: Normal range of motion, no tenderness, supple, no stridor. [] Cardiovascular: Tachycardia Heart rate regular rhythm, no murmur [] Lungs & Thorax: Bilateral breath sounds rhonchi, wheezing and snoring, with agonal respiration,. Pt. required initial prolonged BMV- breathing with nasal airway/trumpet. Abdomen: Bowel sounds decreased , soft, no tenderness, no masses, no pulsatile masses. [] Obese Skin: Warm, diaphoretic, no erythema, no rash. [] Tattoos Back: No tenderness, no CVA tenderness. [] Extremities: No tenderness, no cyanosis, no clubbing, ROM intact, no edema. [] Scar Neurologic: Confused,, normal motor function, normal sensory function, no focal deficits noted. [] Psychologic: Affect sedated, Current Patient Data Vital Signs Vital Signs Date Time Temp Pulse Resp B/P (MAP) Pulse Ox O2 Delivery O2 Flow Rate FiO2 06/23/18 00:51 98 Nasal Cannula 3.0 06/22/18 23:41 104 12 Lab Results Laboratory Tests Test 06/22/18 23:44 06/22/18 23:50 06/23/18 00:15 06/23/18 01:20 White Blood Count 17.2 x10^3/uL (4.0-11.0) H Red Blood Count 5.23 x10^6/uL (4.30-5.70) Hemoglobin 14.3 g/dL (13.0-17.5) Hematocrit 44.0 % (39.0-53.0) Mean Corpuscular Volume 84 fL (79-100) Mean Corpuscular Hemoglobin 27 pg (25-35) Mean Corpuscular Hemoglobin Concent 33 g/dL (31-37) Red Cell Distribution Width 14.0 % (11.5-14.5) Platelet Count 364 x10^3/uL (140-400) Neutrophils (%) (Auto) 37 % (31-73) Lymphocytes (%) (Auto) 47 % (24-48) Monocytes (%) (Auto) 11 % (0-9) H Eosinophils (%) (Auto) 5 % (0-3) H Basophils (%) (Auto) 1 % (0-3) Neutrophils # (Auto) 6.3 x10^3uL (1.8-7.7) Lymphocytes # (Auto) 8.1 x10^3/uL (1.0-4.8) H Monocytes # (Auto) 1.9 x10^3/uL (0.0-1.1) H Eosinophils # (Auto) 0.8 x10^3/uL (0.0-0.7) H Basophils # (Auto) 0.1 x10^3/uL (0.0-0.2) Segmented Neutrophils % 37 % (35-66) Band Neutrophils % 5 % (0-9) Lymphocytes % 47 % (24-48) Monocytes % 6 % (0-10) Eosinophils % 5 % (0-5) Platelet Estimate Adequate (ADEQUATE) Erythrocyte Sedimentation Rate 8 (0-15) Prothrombin Time 9.7 SEC (9.4-11.4) Prothrombin Time INR 1.0 (0.9-1.1) PTT 24 SEC (23-33) D-Dimer (Martina) 0.26 mg/L (0.00-0.50) Sodium Level 138 mmol/L (136-145) Potassium Level 3.8 mmol/L (3.5-5.1) Chloride Level 100 mmol/L (98-107) Carbon Dioxide Level 28 mmol/L (21-32) Anion Gap 10 (6-14) Blood Urea Nitrogen 15 mg/dL (8-26) Creatinine 1.3 mg/dL (0.7-1.3) Estimated GFR (Cockcroft-Gault) 61.1 Glucose Level 298 mg/dL (70-99) H Calcium Level 8.6 mg/dL (8.5-10.1) Magnesium Level 2.2 mg/dL (1.8-2.4) Total Bilirubin 0.4 mg/dL (0.2-1.0) Direct Bilirubin 0.1 mg/dL (0.0-0.2) Aspartate Amino Transferase (AST) 34 U/L (15-37) Alanine Aminotransferase (ALT) 37 U/L (16-63) Alkaline Phosphatase 95 U/L (46-116) Creatine Kinase 184 U/L (39-308) Creatine Kinase MB (Mass) 1.9 ng/mL (0.0-3.6) Creatine Kinase MB Relative Index 1.0 % (0-4) Troponin I Quantitative < 0.017 ng/mL (0-0.055) PQ-Rnx-L-Type Natriuretic Peptide 63 pg/mL (0-124) Total Protein 7.6 g/dL (6.4-8.2) Albumin 3.9 g/dL (3.4-5.0) Lipase 227 U/L (73-393) Ethyl Alcohol Level < 10 mg/dL (0-10) Glucose (Fingerstick) 253 mg/dL (70-99) H Urine Collection Type U cath Urine Color Yellow Urine Clarity Clear Urine pH 7.0 Urine Specific [place] 1.015 Urine Protein 100 mg/dl (NEG-TRACE) Urine Glucose (UA) 500 mg/dL (NEG) Urine Ketones (Stick) Neg mg/dL (NEG) Urine Blood Trace (NEG) Urine Nitrite Neg (NEG) Urine Bilirubin Neg (NEG) Urine Urobilinogen Dipstick 0.2 mg/dL (0.2 mg/dL) Urine Leukocyte Esterase Neg (NEG) Urine RBC Rare /HPF (0-2) Urine WBC Occ /HPF (0-4) Urine Squamous Epithelial Cells Occ /LPF Urine Bacteria 0 /HPF (0-FEW) Urine Opiates Screen Neg (NEG) Urine Methadone Screen Neg (NEG) Urine Barbiturates Neg (NEG) Urine Phencyclidine Screen Neg (NEG) Urine Amphetamine/Methamphetamine Neg (NEG) Urine Benzodiazepines Screen Pos (NEG) Urine Cocaine Screen Neg (NEG) Urine Cannabinoids Screen Neg (NEG) Urine Ethyl Alcohol Neg (NEG) Influenza Type A (Rapid) Negative (NEGATIVE) Influenza Type B (Rapid) Negative (NEGATIVE) Group A Streptococcus Rapid Negative (NEGATIVE) Test 06/23/18 01:35 06/23/18 02:31 Lactic Acid Level 2.4 mmol/L (0.4-2.0) H Glucose (Fingerstick) 147 mg/dL (70-99) H EKG EKG My interpretation of EKG shows a[] sinus rhythm at 87 bpm. There is some nonspecific contour changes anterior lateral leads. But no findings acute STEMI with contralateral changes. Radiology/Procedures Radiology/Procedures My interpretation of chest x-ray shows no acute cardiopulmonary findings. Does have increased cardiac silhouette. My interpretation CT of head shows no shift, mass, edema, bleed, or fracture. See formal report when available[] Course & Med Decision Making Course & Med Decision Making Pertinent Labs and Imaging studies reviewed. (See chart for details) Critical care 60 minutes Patient to be admitted to Dr Cruz for further eval. and tx. Pt. to be placed on Tele. [] Final Impression Final Impression 1. Respiratory Failure 2. Hypoxia 3. DM 253 4. HTN 5. Leukocytosis 17.2 6. + Benzodiazepine drug screen 7. Suspect Drug Over dose 8. Lt Maxillary Sinusitis Braxton Disclaimer Braxton Disclaimer This electronic medical record was generated, in whole or in part, using a voice recognition dictation system. Discharge Summary Visit Information Final Diagnosis Problems Medical Problems: (1) Respiratory failure with hypoxia Status: Acute Brief Hospital Course Allergies Allergies Coded Allergies Type Severity Reaction Last Updated Verified No Known Drug Allergies 11/15/17 No Vital Signs Vital Signs Date Time Temp Pulse Resp B/P (MAP) Pulse Ox O2 Delivery O2 Flow Rate FiO2 06/23/18 00:51 98 Nasal Cannula 3.0 06/22/18 23:41 104 12 Lab Results Laboratory Tests Test 06/22/18 23:44 06/22/18 23:50 06/23/18 00:15 06/23/18 01:20 White Blood Count 17.2 x10^3/uL (4.0-11.0) Red Blood Count 5.23 x10^6/uL (4.30-5.70) Hemoglobin 14.3 g/dL (13.0-17.5) Hematocrit 44.0 % (39.0-53.0) Mean Corpuscular Volume 84 fL (79-100) Mean Corpuscular Hemoglobin 27 pg (25-35) Mean Corpuscular Hemoglobin Concent 33 g/dL (31-37) Red Cell Distribution Width 14.0 % (11.5-14.5) Platelet Count 364 x10^3/uL (140-400) Neutrophils (%) (Auto) 37 % (31-73) Lymphocytes (%) (Auto) 47 % (24-48) Monocytes (%) (Auto) 11 % (0-9) Eosinophils (%) (Auto) 5 % (0-3) Basophils (%) (Auto) 1 % (0-3) Neutrophils # (Auto) 6.3 x10^3uL (1.8-7.7) Lymphocytes # (Auto) 8.1 x10^3/uL (1.0-4.8) Monocytes # (Auto) 1.9 x10^3/uL (0.0-1.1) Eosinophils # (Auto) 0.8 x10^3/uL (0.0-0.7) Basophils # (Auto) 0.1 x10^3/uL (0.0-0.2) Segmented Neutrophils % 37 % (35-66) Band Neutrophils % 5 % (0-9) Lymphocytes % 47 % (24-48) Monocytes % 6 % (0-10) Eosinophils % 5 % (0-5) Platelet Estimate Adequate (ADEQUATE) Erythrocyte Sedimentation Rate 8 (0-15) Prothrombin Time 9.7 SEC (9.4-11.4) Prothromb Time International Ratio 1.0 (0.9-1.1) Activated Partial Thromboplast Time 24 SEC (23-33) D-Dimer (Martina) 0.26 mg/L (0.00-0.50) Sodium Level 138 mmol/L (136-145) Potassium Level 3.8 mmol/L (3.5-5.1) Chloride Level 100 mmol/L (98-107) Carbon Dioxide Level 28 mmol/L (21-32) Anion Gap 10 (6-14) Blood Urea Nitrogen 15 mg/dL (8-26) Creatinine 1.3 mg/dL (0.7-1.3) Estimated GFR (Cockcroft-Gault) 61.1 Glucose Level 298 mg/dL (70-99) Calcium Level 8.6 mg/dL (8.5-10.1) Magnesium Level 2.2 mg/dL (1.8-2.4) Total Bilirubin 0.4 mg/dL (0.2-1.0) Direct Bilirubin 0.1 mg/dL (0.0-0.2) Aspartate Amino Transf (AST/SGOT) 34 U/L (15-37) Alanine Aminotransferase (ALT/SGPT) 37 U/L (16-63) Alkaline Phosphatase 95 U/L (46-116) Creatine Kinase 184 U/L (39-308) Creatine Kinase MB (Mass) 1.9 ng/mL (0.0-3.6) Creatine Kinase MB Relative Index 1.0 % (0-4) Troponin I Quantitative < 0.017 ng/mL (0-0.055) OE-Kfi-L-Type Natriuretic Peptide 63 pg/mL (0-124) Total Protein 7.6 g/dL (6.4-8.2) Albumin 3.9 g/dL (3.4-5.0) Lipase 227 U/L (73-393) Ethyl Alcohol Level < 10 mg/dL (0-10) Glucose (Fingerstick) 253 mg/dL (70-99) Urine Collection Type U cath Urine Color Yellow Urine Clarity Clear Urine pH 7.0 Urine Specific [place] 1.015 Urine Protein 100 mg/dl (NEG-TRACE) Urine Glucose (UA) 500 mg/dL (NEG) Urine Ketones (Stick) Neg mg/dL (NEG) Urine Blood Trace (NEG) Urine Nitrite Neg (NEG) Urine Bilirubin Neg (NEG) Urine Urobilinogen Dipstick 0.2 mg/dL (0.2 mg/dL) Urine Leukocyte Esterase Neg (NEG) Urine RBC Rare /HPF (0-2) Urine WBC Occ /HPF (0-4) Urine Squamous Epithelial Cells Occ /LPF Urine Bacteria 0 /HPF (0-FEW) Urine Opiates Screen Neg (NEG) Urine Methadone Screen Neg (NEG) Urine Barbiturates Neg (NEG) Urine Phencyclidine Screen Neg (NEG) Urine Amphetamine/Methamphetamine Neg (NEG) Urine Benzodiazepines Screen Pos (NEG) Urine Cocaine Screen Neg (NEG) Urine Cannabinoids Screen Neg (NEG) Urine Ethyl Alcohol Neg (NEG) Influenza Type A (Rapid) Negative (NEGATIVE) Influenza Type B (Rapid) Negative (NEGATIVE) Group A Streptococcus Rapid Negative (NEGATIVE) Test 06/23/18 01:35 06/23/18 02:31 Lactic Acid Level 2.4 mmol/L (0.4-2.0) Glucose (Fingerstick) 147 mg/dL (70-99) Brief Hospital Course Mr. Garcia is a 38 old male who presented with in Respiratory Failure-agonal respirations and hypoxia. Admit to Dr. Chapa for further tx. and evaluation. Discharge Information Condition at Discharge: Improved, Stable Dischare Medications Current Medications Dextrose 25 gm STK-MED ONCE IV ; Start 06/22/18 at 23:46; Stop 06/22/18 at 23:47 ; Status DC Succinylcholine Chloride (Anectine) 200 mg STK-MED ONCE .ROUTE ; Start 06/22/18 at 23:52; Stop 06/22/18 at 23:53; Status DC Sodium Chloride 1,000 ml @ 1,000 mls/hr Q1H IV Last administered on 06/23/18at 01:12; Admin Dose 1,000 MLS/HR; Start 06/23/18 at 00:30; Stop 06/23/18 at 01:29 ; Status DC Lactated Ringer's 1,000 ml @ 1,000 mls/hr Q1H IV Last administered on at 01:11; Admin Dose 1,000 MLS/HR; Start 06/23/18 at 00:30; Stop 06/23/18 at 01:29; Status DC Albuterol/ Ipratropium (Duoneb) 3 ml STK-MED ONCE .ROUTE ; Start 06/23/18 at 00: 42; Stop 06/23/18 at 00:43; Status DC Ceftriaxone Sodium 1 gm/ Sodium Chloride 50 ml @ 100 mls/hr 1X ONCE IV Last administered on 06/23/18at 01:48; Admin Dose 100 MLS/HR; Start 06/23/18 at 01:30 ; Stop 06/23/18 at 01:59; Status DC Azithromycin (Zithromax) 500 mg 1X ONCE PO Last administered on 06/23/18at 01: 48; Admin Dose 500 MG; Start 06/23/18 at 01:30; Stop 06/23/18 at 01:31; Status DC Ondansetron HCl (Zofran) 4 mg PRN Q4HRS PRN IV NAUSEA/VOMITING; Start 06/23/18 at 01:30; Stop 06/24/18 at 01:29 Sodium Chloride 50 ml @ As Directed STK-MED ONCE .ROUTE ; Start 06/23/18 at 01: 44; Stop 06/23/18 at 01:45; Status DC Ceftriaxone Sodium (Rocephin) 1 gm STK-MED ONCE .ROUTE ; Start 06/23/18 at 01:44 ; Stop 06/23/18 at 01:45; Status DC Sodium Chloride 1,000 ml @ 1,000 mls/hr 1X ONCE IV Last administered on at 02:21; Admin Dose 1,000 MLS/HR; Start 06/23/18 at 02:30; Stop 06/23/18 at 03:29; Status DC Lactated Ringer's 1,000 ml @ 75 mls/hr 1X ONCE IV Last administered on at 03:18; Admin Dose 75 MLS/HR; Start 06/23/18 at 03:00; Stop 06/23/18 at 16: 19 Dextrose 25 gm 1X ONCE IV Last administered on 06/22/18at 23:47; Admin Dose 25 GM; Start 06/23/18 at 03:00; Stop 06/23/18 at 03:01; Status DC Active Scripts Active Reported Amlodipine Besylate 10 Mg Tablet 1 Tab PO DAILY Irbesartan 300 Mg Tablet 1 Tab PO DAILY Metformin Hcl 1,000 Mg Tablet 1 Tab PO BID Clonidine Tts-3 (Clonidine) 1 Each Patch.tdwk 1 Patch TD WEEKLY Dragon Disclaimer This chart was dictated in whole or in part using Voice Recognition software in a busy, high-work load, and often noisy Emergency Department environment. It may contain unintended and wholly unrecognized errors or omissions. BRITTANY NG MD Jun 23, 2018 00:10
[2018-06-23] MEDS ORDERED: IV RINGERS SOLUTION,LACTATED 1,000 ML IV SCH (00:30)
[2018-06-23] MEDS ORDERED: IV NORMAL SALINE 1,000ML 1,000 ML IV SCH (00:30)
[2018-06-23] MEDS ORDERED: IPRATRPIUM/ALBUTEROL 0.5/2.5MG 3 ML NEBU. ONE ×2 (00:42→04:40)
[2018-06-23 00:46] LABS: BARBITURATES NEG (NEG); BENZODIAZEPINES POS (NEG); CANNABINOIDS NEG (NEG); COCAINE NEG (NEG); METHADONE NEG (NEG); OPIATES NEG (NEG); PHENCYCLIDINE NEG (NEG)
--- NOTE | 2018-06-23 00:47 | RAD ---
PQRS Compliance statement: One or more of the following individualized dose reduction techniques were utilized for this examination: 1. Automated exposure control. 2. Adjustment of the mA and/or kV according to patient size. 3. Use of iterative reconstruction technique. Indication:respiratory failure, confusion TECHNIQUE: CT head without IV contrast COMPARISON:None FINDINGS: No pathologic extra-axial or intra-axial fluid collection. The ventricles and basal cisterns are within normal limits. No acute intracranial bleed. No focal loss of lane-white differentiation. Orbits within normal limits. No suspicious calvarial lesion. Mucoperiosteal thickening seen of the left maxillary sinus. Rest of the paranasal sinuses and mastoid air cells are clear. IMPRESSION: No acute intracranial bleed. If concern for acute ischemic stroke is high, please consider MRI brain. Critical findings were identified on 06/23/2018 12:40 AM, read back and verified with Dr. Andrade on 06/23/2018 12:[address] Erich Turner DO. Electronically signed by: Erich Turner DO (06/23/2018 12:44 AM) [facility]
[2018-06-23 00:49] LABS: BASO # 0.1 x10^3/uL (0.0-0.2); BASO % 1 % (0-3); EOS # 0.8 x10^3/uL (0.0-0.7); EOS % 5 % (0-3); HEMOGLOBIN 14.3 g/dL (13.0-17.5); LYMPH # 8.1 x10^3/uL (1.0-4.8); LYMPH % 47 % (24-48); MEAN CORPUSCULAR HEMOGLOBIN 27 pg (25-35); MEAN CORPUSCULAR HGB CONC 33 g/dL (31-37); MEAN CORPUSCULAR VOLUME 84 fL (79-100); MONO # 1.9 x10^3/uL (0.0-1.1); MONO % 11 % (0-9); NEUT # 6.3 x10^3uL (1.8-7.7); NEUT % 37 % (31-73); PLATELET COUNT 364 x10^3/uL (140-400); RED BLOOD COUNT 5.23 x10^6/uL (4.30-5.70); WHITE BLOOD COUNT 17.2 x10^3/uL (4.0-11.0)
[2018-06-23 00:51] LABS: AMPHETAMINE/METHAMPHETAMINE NEG (NEG)
[2018-06-23 01:00] LABS: ALBUMIN 3.9 g/dL (3.4-5.0); CALCIUM 8.6 mg/dL (8.5-10.1); CREATININE 1.3 mg/dL (0.7-1.3); DIRECT BILIRUBIN 0.1 mg/dL (0.0-0.2); GFR 61.1; MAGNESIUM 2.2 mg/dL (1.8-2.4); POTASSIUM 3.8 mmol/L (3.5-5.1); TOTAL BILIRUBIN 0.4 mg/dL (0.2-1.0); TOTAL PROTEIN 7.6 g/dL (6.4-8.2)
[2018-06-23 01:10] LABS: % BANDS 5 % (0-9); % EOS 5 % (0-5); % LYMPHS 47 % (24-48); % MONOS 6 % (0-10); % SEGS 37 % (35-66); PLT ESTIMATE ADEQUATE (ADEQUATE)
--- NOTE | 2018-06-23 01:10 | RAD ---
PROCEDURE: PORTABLE CHEST 1V CLINICAL INDICATION: Respiratory failure, confusion COMPARISON: 11/15/2017 FINDINGS: No pneumothorax identified. Cardiac and mediastinal contours unremarkable. No pulmonary consolidation or acute airspace disease. No acute osseous abnormalities identified. IMPRESSION: No pulmonary consolidation or acute airspace disease. Electronically signed by: Erich Turner DO (06/23/2018 1:07 AM) [facility]
[2018-06-23 01:14] LABS: BACTERIA,URINE 0 /HPF (0-FEW); BILIRUBIN,URINE NEG (NEG); CLARITY,URINE CLEAR; COLOR,URINE YELLOW; GLUCOSE,URINE 500 mg/dL (NEG); NITRITE,URINE NEG (NEG); RBC,URINE RARE /HPF (0-2); SQUAMOUS EPITHELIAL CELL,UR OCC /LPF; UROBILINOGEN,URINE 0.2 mg/dL (0.2 mg/dL); WBC,URINE OCC /HPF (0-4)
[2018-06-23] MEDS ORDERED: ONDANSETRON PF 4 MG/2 ML VIAL. IV PRN (01:30)
[2018-06-23] MEDS ORDERED: AZITHROMYCIN 250 MG TABLET. PO ONE (01:30)
[2018-06-23 01:41] LABS: SEDIMENTATION RATE 8 (0-15)
[2018-06-23] MEDS ORDERED: IV NORMAL SALINE 50ML 50 ML ONE (01:44)
[2018-06-23] MEDS ORDERED: cefTRIAXone SODIUM 1 GM VIAL ONE (01:44)
[2018-06-23 02:18] LABS: INFLUENZA A PATIENT NEGATIVE (NEGATIVE); INFLUENZA B PATIENT NEGATIVE (NEGATIVE)
[2018-06-23] MEDS ORDERED: IV NORMAL SALINE 1,000ML 1,000 ML IV ONE (02:30)
[2018-06-23] MEDS ORDERED: DEXTROSE 50% 25 GM / 50ML DISP.SYRIN. IV ONE (03:00)
[2018-06-23] MEDS ORDERED: IV RINGERS SOLUTION,LACTATED 1,000 ML IV ONE (03:00)
[2018-06-23 03:05] VITALS: BP 153/82
[2018-06-23] MEDS ORDERED: NALOXONE 0.4 MG/ML VIAL. IV ONE (03:15)
[2018-06-23 06:07] VITALS: BP 132/75
[2018-06-23] MEDS: IPRATRPIUM/ALBUTEROL 0.5/2.5MG 3 ML NEBU. NEB SCH ×2 (08:00→09:34)
[2018-06-23] MEDS ORDERED: OXYC10TA PO (09:11)
[2018-06-23] MEDS ORDERED: METO25TA4 PO (09:11)
[2018-06-23] MEDS ORDERED: LOSA1TAB25 PO (09:11)
[2018-06-23] MEDS ORDERED: APIX5TAB3 PO (09:11)
[2018-06-23] MEDS ORDERED: MELO15TA23 PO (09:11)
[2018-06-23] MEDS ORDERED: DILT120T3 PO (09:11)
[2018-06-23] MEDS ORDERED: BUPR-192 PO (09:11)
[2018-06-23 09:23] LABS: BASO # 0.1 x10^3/uL (0.0-0.2); BASO % 1 % (0-3); EOS # 0.3 x10^3/uL (0.0-0.7); EOS % 4 % (0-3); HEMATOCRIT 39.5 % (39.0-53.0); HEMOGLOBIN 13.3 g/dL (13.0-17.5); LYMPH # 2.4 x10^3/uL (1.0-4.8); LYMPH % 28 % (24-48); MEAN CORPUSCULAR HEMOGLOBIN 28 pg (25-35); MEAN CORPUSCULAR HGB CONC 34 g/dL (31-37); MEAN CORPUSCULAR VOLUME 83 fL (79-100); MONO # 0.7 x10^3/uL (0.0-1.1); MONO % 9 % (0-9); NEUT # 5.1 x10^3uL (1.8-7.7); NEUT % 59 % (31-73); PLATELET COUNT 259 x10^3/uL (140-400); RED BLOOD COUNT 4.76 x10^6/uL (4.30-5.70); RED CELL DISTRIBUTION WIDTH 13.7 % (11.5-14.5); WHITE BLOOD COUNT 8.6 x10^3/uL (4.0-11.0)
[2018-06-23 10:23] LABS: ALBUMIN 3.6 g/dL (3.4-5.0); ALBUMIN/GLOBULIN RATIO 1.1 (1.0-1.7); CALCIUM 8.3 mg/dL (8.5-10.1); GFR 82.8; POTASSIUM 4.1 mmol/L (3.5-5.1); TOTAL BILIRUBIN 0.4 mg/dL (0.2-1.0); TOTAL PROTEIN 6.9 g/dL (6.4-8.2)
[2018-06-23] MEDS ORDERED: LIRA3PEN INJ (10:48)
[2018-06-23] MEDS ORDERED: METOPROLOL TART IMMED RELEASE 25 MG TABLET PO SCH (11:00)
[2018-06-23] MEDS ORDERED: APIXABAN 5 MG TABLET. PO SCH (11:00)
[2018-06-23 11:26] VITALS: BP 134/84
[2018-06-23 11:27] VITALS: BP 134/84
[2018-06-23] MEDS ORDERED: buPROPion XL 150 MG TAB.ER.24H PO SCH (12:00)
--- NOTE | 2018-06-23 13:26 | SSS ---
ADMIT DATE: 06/23/2018 HISTORY OF PRESENT ILLNESS: The patient is a 38-year-old male patient who presented to the Emergency Room with respiratory failure. He was unresponsive to noxious stimuli, agonal snoring, was tachycardic on arrival. He had to be manually removed from the car. He required bag mask valve 100% and nasal trumpet placed. He eventually awakened after 50 grams glucose and 2 amps of Narcan. Narcan did not seem to be help. Upon awakening, the patient appeared to have slurred speech, but did answer questions appropriately. He moves all his extremities on request, was somewhat confused, but realized he was at the hospital. The patient is known to have prior history of narcotic overdose that required Narcan. Otherwise, no recent travel or specific ill contact. The patient's right knee injury, no history of trauma. He was extensively investigated in the Emergency Room. His lab work showed he has leukocytosis. His chemistry was generally unremarkable and his toxic screen was actually positive for benzodiazepine. The patient himself did not say that he has taken any benzodiazepine. He said that he was in his aunt's home and he took some medication that was in the Tylenol bottle and felt sleepy after that. He was admitted to the ICU, was continued on all his medications. In fact, by the time I saw him, he was sitting on the edge of the bed, awake, alert, responding appropriately, insisting he wants to go home to go back to the work. On questioning him whether he has any intent to harm himself, he adamantly denied that. PAST MEDICAL HISTORY: Significant for hypertension, hyperlipidemia, type 2 diabetes mellitus, and morbid obesity as well as atrial fibrillation. PAST SURGICAL HISTORY: Significant for left knee surgery. ALLERGIES: He has no known drug allergies. FAMILY HISTORY: He has 3 sisters, all older. His oldest sister has hypothyroidism, obstructive sleep apnea, and atrial fibrillation. The other two sisters are healthy. His father at age of 47 because of massive heart attack. Mother is still alive at age of 62, is known to have bronchial asthma, diabetes mellitus, and COPD. SOCIAL HISTORY: He chews tobacco, smokes marijuana. Does not drink alcohol or use recreational drugs, except that the marijuana. 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 REVIEW OF SYSTEMS: The patient denied any blurring of vision, cataract, glaucoma, or macular degeneration. Denied any earache, tinnitus, or sensorineural deafness. Denied any nosebleeds. Denied any sore throat, sore tongue, toothache, hoarseness of voice, or difficulty swallowing. Denied any nausea, vomiting, diarrhea, or constipation. Denied any hematemesis, melena, or hematochezia. Denied any dysuria, frequency, or hematuria. He denied any chest pain, shortness of breath, orthopnea, paroxysmal nocturnal dyspnea. Denied any cough, phlegm, or hemoptysis. PHYSICAL EXAMINATION: GENERAL: On arrival, he looked well and was clearly in no apparent respiratory distress. No pallor, jaundice, cyanosis, or thyromegaly. No jugular venous distension. No lower limb edema. VITAL SIGNS: His heart rate was 104, blood pressure was 153/82, temperature was 99, respiratory rate was 12, and oxygen saturation was 99%. HEAD, EYES, EARS, NOSE, AND THROAT: Showed normocephalic, atraumatic. NECK: Supple. HEART: Showed normal first and second heart sounds. No gallop, rub, or murmur. CHEST: Clear to auscultation. No crepitation or rhonchi. ABDOMEN: Distended, soft, nontender. NEUROLOGIC: He was initially unresponsive. He was actually treated with dextrose as well as 2 amps of Narcan and Narcan did not seem to be helpful. Upon awakening, he has slurred speech, although he did answer questions appropriately and moved all his extremities without difficulty. LABORATORY DATA: Showed a white cell count of 17,200, hemoglobin 14, hematocrit 44, MCV 84, and platelet count 264,000. His initial chemistry showed a serum sodium 138, potassium 3.8, chloride 100, bicarbonate 28, anion gap of 10, BUN 15, creatinine 1.3, estimated GFR was 61 mL per minute. His blood sugar was 188, calcium was 8.6, magnesium 2.2. Total bilirubin, AST, ALT, alkaline phosphatase were normal. His first set of cardiac enzymes showed troponin to be less than 0.017. Total protein was 7.6, albumin 3.9, and lipase was 127. His prothrombin time was 9.7, INR of 1, aPTT was 24, and D-dimer was mg/dL. Urinalysis was essentially unremarkable and toxicology screen was also unrevealing. His influenza A and B were negative as well as group A streptococcus rapid test. His CT scan of the head showed no acute intracranial bleed for concern and his chest x-ray showed no pneumothorax identified. Cardiac and mediastinal contour is unremarkable. No pulmonary consolidation or acute airspace disease, no acute osseous abnormalities identified. By the time I saw him the patient was sitting at the edge of the bed, more awake, alert, responding appropriately. He adamantly denied having any attempt to harm himself and was discharged home to continue all his medications. FINAL DISCHARGE DIAGNOSES: Altered mental status, hypertension, hyperlipidemia, type 2 diabetes, morbid obesity, obstructive sleep apnea. MARCELLA MIDDLETON MD DR: MARKUS/yelitza JOB#: [id number] / [id number]
[2018-06-23] MEDS ORDERED: metFORMIN 500 MG TABLET PO SCH (17:00)
[2018-06-23] MEDS ORDERED: AZITHROMYCIN 250 MG TABLET. PO SCH (21:00)
[2018-06-24] MEDS ORDERED: LOSARTAN 50 MG TABLET. PO SCH (09:00)
[2018-06-24] MEDS ORDERED: amLODIPine BESYLATE 10 MG TABLET PO SCH (09:00)
--- NOTE | 2018-06-24 22:26 | EKG ---
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
== END 2018-06-23 12:53 | disposition home or self-care (01) | DRG 91 ==
LOC: ER 23:41 → ICU 06-23 03:02
PROVIDERS: ADMIT Internal Medicine; ATTEND Internal Medicine
DX: G92 Toxic encephalopathy (principal); J96.90 Respiratory failure, unspecified, unspecified whether with hypoxia or hypercapnia; Z68.41 Body mass index [BMI] 40.0-44.9, adult; E11.9 Type 2 diabetes mellitus without complications; E66.01 Morbid (severe) obesity due to excess calories; E78.00 Pure hypercholesterolemia, unspecified; E78.5 Hyperlipidemia, unspecified; F12.90 Cannabis use, unspecified, uncomplicated; G47.33 Obstructive sleep apnea (adult) (pediatric); I10 Essential (primary) hypertension; I48.91 Unspecified atrial fibrillation; Z82.49 Family history of ischemic heart disease and other diseases of the circulatory system; Z83.3 Family history of diabetes mellitus; Z96.659 Presence of unspecified artificial knee joint; Z82.5 Family history of asthma and other chronic lower respiratory diseases; G89.29 Other chronic pain
CPT/HCPCS: 36415; 70450; 71045; 80048; 80053; 80076; 80307; 81001; 82553; 82947; 83605; 83690; 83735; 83880; 84443; 84484; 85007; 85025; 85379; 85610; 85651; 85730; 87040; 87070; 87641; 87804; 87880; 93005; 94640; 96361; 96374; 96375; G0480; J0456; J0696; J2250; J2310; J7120; J7620; 99291-25; J7030

== ENCOUNTER 2019-08-16 01:35 | Emergency (ER) | payer OTHER ==
[~2019-08-16] VITALS: Ht 185.4 cm; Wt 160.5 kg
[~2019-08-16 01:35] MED LIST changes: +APIX5TAB3 PO; +BUPR-192 PO; +DILT120T3 PO; +IRBE300T23 PO; -IRBE300T3 PO; +LIRA3PEN INJ; +LOSA1TAB25 PO; +MELO15TA23 PO; +METO25TA4 PO; -MIDAZOLAM HCL PF 5 MG/5 ML VIAL. ONE; +OXYC10TA PO
--- NOTE | 2019-08-16 01:45 | PHYS DOC ---
Past History Past Medical History: A-Fib, Bronchitis, COPD, Diabetes, High Cholesterol, Hypertension, Other Past Medical History Drug Over Dose- Recreational Use Past Surgical History: Knee Replacement Smoking: Cigarettes, Chew Alcohol Use: Rarely Drug Use: Benzodiazepine, Marijuana, Opiates General Adult HPI: HPI: "... I guess I took too much... I only took one pill each.. Xanax and fentanyl tablet... "... " Am I going to get the fuck out of here tonight..."? Patient is a 39 year old male who presents with hx recreational use of reported Xanax and fentanyl. Patient reportedly had respiratory depression and a family member called for ambulance. Patient did receive 2 amps intranasal Narcan and had return of alertness.. Patient has history of long standing dx. of hypertension and diabetes. Normal follow-up with [facility]. Patient denies suicidal ideation. Patient does smoke and chew tobacco. . Patient does not know the strength of the medications he took. Pt. advised the meds were not his prescription. I have previously evaluated patient in June for Drug over dose and hypoxia. At that time patient was admitted for respiratory failure, hypoxia, diabetes, hypertension, leukocytosis, overdose on benzo diazepam and maxillary sinusitis . The pt. at that time admitted to Dr. Chapa. Patient has a significant additional medical history for A. fib with rapid ventricular response, morbid obesity, marijuana, tobacco, and polysubst ance abuse. Patient also has known history of obstructive sleep apnea and hyperlipidemia, hypertension, and noncompliance with medication and treatment plans. Review of Systems: Review of Systems: Constitutional: Denies fever or chills Eyes: Denies change in visual acuity HENT: Denies nasal congestion or sore throat Respiratory: Denies cough or shortness of breath Cardiovascular: Denies chest pain or edema GI: Denies abdominal pain, nausea, vomiting, bloody stools or diarrhea : Denies dysuria Musculoskeletal: Denies back pain or joint pain Integument: Denies rash Neurologic: Denies headache, focal weakness or sensory changes Endocrine: Denies polyuria or polydipsia Lymphatic: Denies swollen glands Psychiatric: Denies depression or anxiety Heart Score: HEART Score for Chest Pain: HEART Score for Chest Pain Response (Comments) Value History Moderately Suspicious 1 ECG Nonspecific Repolarizatio 1 Age < 45 0 Risk Factors 1 or 2 Risk Factors 1 Troponin < Normal Limit 0 Total 3 Risk Factors: Risk Factors: DM, Current or recent (<one month) smoker, HTN, HLP, family history of CAD, obesity. Risk Scores: Score 0 - 3: 2.5% MACE over next 6 weeks - Discharge Home Score 4 - 6: 20.3% MACE over next 6 weeks - Admit for Clinical Observation Score 7 - 10: 72.7% MACE over next 6 weeks - Early Invasive Strategies Family History: Family History: Noncontributory History of 3 sisters 1 with hypothyroidism, sleep apnea and A. fib. Other sisters are healthy. Father of [place] mother has history of asthma COPD and diabetes Current Medications: Current Meds: See nursing for home medications Allergies: Allergies: Allergies Coded Allergies Type Severity Reaction Last Updated Verified No Known Drug Allergies 06/23/18 No Physical Exam: PE: Constitutional: no acute distress, sedate in appearance. [] HENT: Normocephalic, atraumatic, bilateral external ears normal, oropharynx moist, no oral exudates, nose normal. [] Eyes: PERRLA, EOMI, conjunctiva normal, no discharge. [] Neck: Normal range of motion, no tenderness, supple, no stridor. [] Cardiovascular: A. fib with rapid ventricular response per monitor. PMI to the left Lungs & Thorax: Bilateral breath sounds equal apex with scattered wheezes on auscultation [] Abdomen: Bowel sounds normal, soft, no tenderness, no masses, no pulsatile masses. Obese. Skin: Warm, dry, no erythema, no rash. [] Multiple tattoos. Back: No tenderness, no CVA tenderness. [] Extremities: No tenderness, no cyanosis, no clubbing, ROM intact, no edema. Scar right naranjo. Scar left knee Neurologic: Alert and oriented X 3, moves extremities on request, has distal sensory,, no focal deficits noted. [] Psychologic: Affect mildly sedated , judgement normal, mood normal. [] EKG: EKG: My interpretation EKG shows a A. fib rhythm with a rapid ventricular response at 117 [] Radiology/Procedures: Radiology/Procedures: Unable to get X-ray, or read films because internet is down. [] Course & Med Decision Making: Course & Med Decision Making Pertinent Labs and Imaging studies reviewed. (See chart for details) Pt. almost immediately demanding discharge even before vitals and blood draws. Pt. observed for 2hrs. Pt. demanding discharge. Pt. encourage to get rehab. Pt. exhibit UCAR capacity. Will discharge to care of his significant other. Begged pt. to ge drug rehab counselling and follow up at local counseling center . Impression: 1. Drug Overdose- Recreational ( Responded to intranasal Narcan) 2. A. fib with rapid ventricular response 3. Morbid obesity 4. History of polysubstance abuse ( Tonight + for benzodiazepines, opiates, and marijuana) 5. Hypertension 6. Tobacco use [] Braxton Disclaimer: Braxton Disclaimer: This electronic medical record was generated, in whole or in part, using a voice recognition dictation system. Departure Departure: Disposition: 01 HOME/RESIDENCE PRIOR TO ADM Condition: STABLE Referrals: TITO AGUILERA (PCP) Braxton Disclaimer This chart was dictated in whole or in part using Voice Recognition software in a busy, high-work load, and often noisy Emergency Department environment. It may contain unintended and wholly unrecognized errors or omissions. BRITTANY NG MD August 16, 2019 01:45
[2019-08-16] MEDS ORDERED: IV RINGERS SOLUTION,LACTATED 1,000 ML IV SCH (01:54)
[2019-08-16] MEDS ORDERED: MAGNESIUM HYDROXIDE 2,400 MG/30 ML ORAL.SUSP. PO ONE (02:00)
[2019-08-16 02:26] LABS: BASO % 1 % (0-3); EOS # 0.5 x10^3/uL (0.0-0.7); EOS % 6 % (0-3); HEMATOCRIT 36.7 % (39.0-53.0); HEMOGLOBIN 12.6 g/dL (13.0-17.5); LYMPH # 2.6 x10^3/uL (1.0-4.8); LYMPH % 35 % (24-48); MEAN CORPUSCULAR HEMOGLOBIN 28 pg (25-35); MEAN CORPUSCULAR HGB CONC 34 g/dL (31-37); MEAN CORPUSCULAR VOLUME 82 fL (79-100); MONO # 0.4 x10^3/uL (0.0-1.1); MONO % 6 % (0-9); NEUT # 3.9 x10^3uL (1.8-7.7); NEUT % 53 % (31-73); PLATELET COUNT 262 x10^3/uL (140-400); RED BLOOD COUNT 4.45 x10^6/uL (4.30-5.70); RED CELL DISTRIBUTION WIDTH 14.8 % (11.5-14.5); WHITE BLOOD COUNT 7.5 x10^3/uL (4.0-11.0)
[2019-08-16 02:39] LABS: BARBITURATES NEG (NEG); BENZODIAZEPINES POS (NEG); CANNABINOIDS POS (NEG); COCAINE NEG (NEG); METHADONE NEG (NEG); OPIATES POS (NEG); PHENCYCLIDINE NEG (NEG)
[2019-08-16 02:48] LABS: BILIRUBIN,URINE NEG (NEG); CLARITY,URINE CLEAR; COLOR,URINE YELLOW; GLUCOSE,URINE 100 mg/dL (NEG)
[2019-08-16 02:49] LABS: BACTERIA,URINE 0 /HPF (0-FEW); NITRITE,URINE NEG (NEG); RBC,URINE 0 /HPF (0-2); SQUAMOUS EPITHELIAL CELL,UR OCC /LPF; UROBILINOGEN,URINE 0.2 mg/dL (0.2 mg/dL); WBC,URINE OCC /HPF (0-4)
[2019-08-16 02:50] LABS: AMPHETAMINE/METHAMPHETAMINE NEG (NEG)
[2019-08-16 03:07] LABS: CALCIUM 8.4 mg/dL (8.5-10.1); CREATININE 1.4 mg/dL (0.7-1.3); GFR 55.8; POTASSIUM 3.9 mmol/L (3.5-5.1)
[2019-08-16 03:10] VITALS: BP 134/74
[2019-08-16 03:18] LABS: ALBUMIN 3.8 g/dL (3.4-5.0); DIRECT BILIRUBIN 0.2 mg/dL (0.0-0.2); MAGNESIUM 1.9 mg/dL (1.8-2.4); TOTAL BILIRUBIN 0.5 mg/dL (0.2-1.0); TOTAL PROTEIN 7.6 g/dL (6.4-8.2)
[2019-08-16] MEDS ORDERED: MAGNESIUM HYDROXIDE 2,400 MG/30 ML ORAL.SUSP. ONE (03:38)
--- NOTE | 2019-08-16 04:14 | RAD ---
PORTABLE CHEST 1V Clinical Indication: Overdose Comparison: AP chest June 23, 2018. Findings: The cardiomediastinal silhouette is normal. Lungs are clear. There is no pneumothorax. No pleural effusion is appreciated. No acute bone abnormality. IMPRESSION: No acute cardiopulmonary process. Electronically signed by: Jose James MD (08/16/2019 4:12 AM) [id number]
[2019-08-16 05:05] LABS: ACETAMIN < 2.0 mcg/mL (10-30); SALIC < 2.8 mg/dL (2.8-20.0)
--- NOTE | 2019-08-16 11:58 | EKG ---
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
== END 2019-08-16 03:50 | disposition left against medical advice (07) ==
LOC: ER 01:35
DX: T50.7X1A Poisoning by analeptics and opioid receptor antagonists, accidental (unintentional), initial encounter (principal); I48.20 Chronic atrial fibrillation, unspecified; I10 Essential (primary) hypertension; F12.10 Cannabis abuse, uncomplicated; F15.10 Other stimulant abuse, uncomplicated; J44.9 Chronic obstructive pulmonary disease, unspecified; E78.00 Pure hypercholesterolemia, unspecified; E11.9 Type 2 diabetes mellitus without complications; F17.210 Nicotine dependence, cigarettes, uncomplicated; Z98.890 Other specified postprocedural states; E66.01 Morbid (severe) obesity due to excess calories; Z68.42 Body mass index [BMI] 45.0-49.9, adult; Y92.89 Other specified places as the place of occurrence of the external cause
CPT/HCPCS: 36415; 71045; 80048; 80076; 80307; 80329; 81001; 82550; 83605; 83690; 83735; 83880; 84443; 84484; 85025; 85610; 85730; 93005; 99285; G0480; J7120

== ENCOUNTER 2019-09-15 22:40 | Emergency (ER) | payer OTHER ==
[~2019-09-15] VITALS: Ht 186.7 cm; Wt 156.3 kg
--- NOTE | 2019-09-15 22:48 | PHYS DOC ---
Past History Past Medical History: A-Fib, Bronchitis, COPD, Diabetes, High Cholesterol, Hypertension, Other Past Surgical History: Knee Replacement Smoking: Cigarettes, Greater than 1 pack/day, Chew Alcohol Use: Rarely Drug Use: Benzodiazepine, Marijuana, Opiates General Adult HPI: HPI: :' " What the Fuck..I got vomit all over me..I got vomit stuck in my fucking nose...can I have something to blow the crap out of my nose..." Patient is a 39 year old male who presents with hx.of over dosage "Street Xanax and fentanyl ". . Pt family called when pt.stopped breathing. Pt. received 2 units of Narcan per nasal and 4 mg Zofran when he started vomiting. Pt. seen previously for accidently Over dosages. Patient has been seen 3 times by me for narcotic overdoses requiring Narcan to reverse his respiratory depression.. Patient does have past medical history of A. fib. , Hypertension, hyperlipidemia, diabetes, morbid obesity. Pt. follow s with Rhonda. Patient denies any travel recently outside [facility]. Patient denies any immunosuppression. Pt. follow s with Dr. Barth for his cardiac issues. Review of Systems: Review of Systems: Constitutional: Denies fever or chills Eyes: Denies change in visual acuity HENT: Denies nasal congestion or sore throat Respiratory: Denies cough or shortness of breath Cardiovascular: Denies chest pain or edema GI: Complains of, nausea, vomiting, . : Denies dysuria Musculoskeletal: Denies back pain or joint pain Integument: Denies rash Neurologic: Denies headache, focal weakness or sensory changes Endocrine: Denies polyuria or polydipsia Lymphatic: Denies swollen glands Psychiatric: Denies depression or anxiety Heart Score: HEART Score for Chest Pain: HEART Score for Chest Pain Response (Comments) Value History Moderately Suspicious 1 ECG Nonspecific Repolarizatio 1 Age < 45 0 Risk Factors 1 or 2 Risk Factors 1 Troponin < Normal Limit 0 Total 3 Risk Factors: Risk Factors: DM, Current or recent (<one month) smoker, HTN, HLP, family history of CAD, obesity. Risk Scores: Score 0 - 3: 2.5% MACE over next 6 weeks - Discharge Home Score 4 - 6: 20.3% MACE over next 6 weeks - Admit for Clinical Observation Score 7 - 10: 72.7% MACE over next 6 weeks - Early Invasive Strategies Family History: Family History: There is a family history of hypothyroidism, sleep apnea and atrial fibrillation. Has 3 sisters. Father age 47 due to DC. Mother alive at 62 with no history of bronchial asthma diabetes and COPD. Current Medications: Current Meds: See nursing for home meds Allergies: Allergies: Allergies Coded Allergies Type Severity Reaction Last Updated Verified No Known Drug Allergies 06/23/18 No Physical Exam: PE: Constitutional: , no acute distress, appears to be obviously under the influence of sedative type meds HENT: Normocephalic, atraumatic, bilateral external ears normal, oropharynx moist, no oral exudates, nose normal. [] Eyes: PERRLA, EOMI, conjunctiva normal, no discharge. [] Neck: Normal range of motion, no tenderness, supple, no stridor. [] Cardiovascular: Tachycardia heart irregular rate and rhythm, no murmur [] PMI to the left. A. fib fib by monitor Lungs & Thorax: Bilateral breath sounds clear to auscultation [] Abdomen: Bowel sounds creased , soft, no tenderness, no masses, no pulsatile masses. Obese. Distended. Old surgery scars. Vomited prior to arrival Skin: Warm, dry, no erythema, no rash. [] Back: No tenderness, no CVA tenderness. [] Extremities: No tenderness, no cyanosis, no clubbing, ROM intact, bilateral ankle edema. [Venous stasis Neurologic: Alert and oriented X 3, moves all extremities on request. Does have distal sensory., no focal deficits noted. [] Psychologic: Affect argumentative, judgement normal, falls asleep easily EKG: EKG: My interpretation of EKG shows a irregular rate and rhythm consistent with a ventricular rate of 127. [] Radiology/Procedures: Radiology/Procedures: [][address] [address] IMAGING REPORT Signed PATIENT: BARBARA RECINOS ACCOUNT: [id number] : 1980 LOCATION: ER AGE: 39 SEX: M EXAM STATUS: PRE ER ORD. PHYSICIAN: BRITTANY NG MD REASON: od PROCEDURE: PORTABLE CHEST 1V EXAM: AP View of the chest DATE: 09/15/2019 11:00 PM INDICATION: Overdose COMPARISON: 08/16/2019 FINDINGS/ IMPRESSION: Mild cardiomegaly. Aorta is tortuous. Eventration right hemidiaphragm. Patchy opacities right greater than left lung base likely atelectasis. No pleural effusion or pneumothorax. Electronically signed by: Shaun Conklin MD (09/15/2019 11:36 PM) [facility] DICTATED AND SIGNED BY: SHAUN CONKLIN MD DATE: 09/15/19 3725 CC: BRITTANY NG MD; TITO AGUILERA ~ Course & Med Decision Making: Course & Med Decision Making Pertinent Labs and Imaging studies reviewed. (See chart for details) Patient admitted to with cardiology consult. Patient's mentation gradually improved then demanded discharge. Begged patient reconsider his decision. Patient exhibits UCAR capacity. Patient discharged home AGAINST MEDICAL ADVICE. Beg patient to consider drug rehab for his narcotic and benzo diazepam been dependency. Impression: 1. Drug overdose polysubstance-narcotics and benzos 2. Accelerated hypertension 3. A. fib with rapid ventricular response 4. Anemia hemoglobin 12.5 5. Diabetes glucose 217 6. Tobacco marijuana use [] Dragon Disclaimer: Dragon Disclaimer: This electronic medical record was generated, in whole or in part, using a voice recognition dictation system. Departure Departure: Disposition: 01 HOME/RESIDENCE PRIOR TO ADM Condition: STABLE Referrals: TITO AGUILERA (PCP) Justification of Admission: Justification of Admission: Justification of Admission Dx: Yes CHF: Cardiac Arrhythmias Altered Mental Status: Altered Mental Status (overdosage on oral narcotic and benzos) Dragon Disclaimer This chart was dictated in whole or in part using Voice Recognition software in a busy, high-work load, and often noisy Emergency Department environment. It may contain unintended and wholly unrecognized errors or omissions. Dragon Disclaimer This chart was dictated in whole or in part using Voice Recognition software in a busy, high-work load, and often noisy Emergency Department environment. It may contain unintended and wholly unrecognized errors or omissions. BRITTANY NG MD Sep 15, 2019 22:48
[2019-09-15] MEDS ORDERED: IV RINGERS SOLUTION,LACTATED 1,000 ML IV SCH (23:00)
[2019-09-15 23:23] LABS: BASO # 0.1 x10^3/uL (0.0-0.2); BASO % 1 % (0-3); EOS # 0.4 x10^3/uL (0.0-0.7); EOS % 7 % (0-3); HEMATOCRIT 38.3 % (39.0-53.0); HEMOGLOBIN 12.5 g/dL (13.0-17.5); LYMPH # 2.7 x10^3/uL (1.0-4.8); LYMPH % 43 % (24-48); MEAN CORPUSCULAR HEMOGLOBIN 27 pg (25-35); MEAN CORPUSCULAR HGB CONC 33 g/dL (31-37); MEAN CORPUSCULAR VOLUME 83 fL (79-100); MONO # 0.6 x10^3/uL (0.0-1.1); MONO % 9 % (0-9); NEUT # 2.5 x10^3uL (1.8-7.7); NEUT % 41 % (31-73); PLATELET COUNT 230 x10^3/uL (140-400); RED BLOOD COUNT 4.61 x10^6/uL (4.30-5.70); RED CELL DISTRIBUTION WIDTH 15.1 % (11.5-14.5); WHITE BLOOD COUNT 6.3 x10^3/uL (4.0-11.0)
[2019-09-15 23:32] LABS: CALCIUM 8.6 mg/dL (8.5-10.1); CREATININE 1.8 mg/dL (0.7-1.3); GFR 41.8; POTASSIUM 4.4 mmol/L (3.5-5.1)
--- NOTE | 2019-09-15 23:38 | RAD ---
EXAM: AP View of the chest DATE: 09/15/2019 11:00 PM INDICATION: Overdose COMPARISON: 08/16/2019 FINDINGS/ IMPRESSION: Mild cardiomegaly. Aorta is tortuous. Eventration right hemidiaphragm. Patchy opacities right greater than left lung base likely atelectasis. No pleural effusion or pneumothorax. Electronically signed by: Shaun Paulson MD (09/15/2019 11:36 PM) DEENA
[2019-09-15 23:44] LABS: ALBUMIN 3.9 g/dL (3.4-5.0); DIRECT BILIRUBIN 0.1 mg/dL (0.0-0.2); TOTAL BILIRUBIN 0.5 mg/dL (0.2-1.0); TOTAL PROTEIN 7.5 g/dL (6.4-8.2)
[2019-09-16] LABS: BARBITURATES NEG (NEG); BENZODIAZEPINES POS (NEG); CANNABINOIDS POS (NEG); COCAINE NEG (NEG); METHADONE NEG (NEG); OPIATES POS (NEG); PHENCYCLIDINE NEG (NEG)
[2019-09-16 00:01] LABS: AMPHETAMINE/METHAMPHETAMINE POS (NEG)
[2019-09-16 00:06] LABS: BACTERIA,URINE 0 /HPF (0-FEW); BILIRUBIN,URINE NEG (NEG); CLARITY,URINE CLEAR; COLOR,URINE YELLOW; GLUCOSE,URINE NEG (NEG); NITRITE,URINE NEG (NEG); RBC,URINE RARE /HPF (0-2); SQUAMOUS EPITHELIAL CELL,UR FEW /LPF; UROBILINOGEN,URINE 0.2 mg/dL (0.2 mg/dL); WBC,URINE RARE /HPF (0-4)
[2019-09-16 00:07] LABS: HYALINE CASTS, URINE OCC /HPF
[2019-09-16] MEDS ORDERED: NALOXONE 0.4 MG/ML VIAL. IV PRN (01:30)
[2019-09-16] MEDS ORDERED: IV RINGERS SOLUTION,LACTATED 1,000 ML IV SCH (01:30)
[2019-09-16] MEDS ORDERED: dilTIAZem VIAL 125 MG in IV NORMAL SALINE 100ML 100 ML IV PRN (01:30)
[2019-09-16] MEDS ORDERED: IV NORMAL SALINE 100ML 0 ML ONE (01:49)
[2019-09-16] MEDS ORDERED: ASPIRIN 325 MG TABLET PO ONE (02:00)
[2019-09-16] MEDS ORDERED: dilTIAZem 25 MG/5 ML VIAL IVP ONE (02:00)
[2019-09-16] MEDS ORDERED: ENOXAPARIN ** NOTE DOSE ** SYRINGE SQ ONE (02:00)
[2019-09-16 02:17] VITALS: BP 145/99
[2019-09-16] MEDS ORDERED: ASPIRIN CHEWABLE 81 MG TABLET. PO SCH (08:00)
[2019-09-16] MEDS ORDERED: IPRATRPIUM/ALBUTEROL 0.5/2.5MG 3 ML NEBU. NEB SCH (08:00)
[2019-09-16] MEDS ORDERED: NITROGLYCERIN OINT 1 GM PACKET. TP SCH (09:00)
[2019-09-16 10:03] LABS: THYROID STIM HORMONE (TSH) 3.117 uIU/mL (0.358-3.740)
--- NOTE | 2019-09-18 07:15 | EKG ---
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
== END 2019-09-16 02:30 | disposition left against medical advice (07) ==
LOC: ER 22:40
DX: T42.4X1A Poisoning by benzodiazepines, accidental (unintentional), initial encounter (principal); T40.4X1A Poisoning by other synthetic narcotics, accidental (unintentional), initial encounter; R11.2 Nausea with vomiting, unspecified; I10 Essential (primary) hypertension; I48.20 Chronic atrial fibrillation, unspecified; D64.9 Anemia, unspecified; E11.9 Type 2 diabetes mellitus without complications; J44.9 Chronic obstructive pulmonary disease, unspecified; E78.00 Pure hypercholesterolemia, unspecified; F17.210 Nicotine dependence, cigarettes, uncomplicated; F12.10 Cannabis abuse, uncomplicated; F14.10 Cocaine abuse, uncomplicated; F15.10 Other stimulant abuse, uncomplicated; Y92.89 Other specified places as the place of occurrence of the external cause
CPT/HCPCS: 36415; 71045; 80048; 80061; 80076; 80307; 81001; 82550; 83690; 83735; 83880; 84443; 84484; 85025; 85610; 85730; 96361; 96372; 96374; 99285; J1650; J3490; J7120; 93005

== ENCOUNTER → 2019-10-31 | Outpatient (CLI) | payer OTHER ==
[~2019-10-31] MED LIST changes: +REGADENOSON 0.4 MG/5 ML DISP.SYRIN. IV ONE
--- NOTE | 2019-10-31 16:14 | CARD ---
MR#: [id number] Date of Study: 10/31/2019 Ordering Physician: ILIANA DAVENPORT, Referring Physician: ILIANA DAVENPORT, Tech: Nilsa Fuentes [facility] APPROVED REPORT EXAM: Two-dimensional and M-mode echocardiogram with Doppler and color Doppler. Other Information Quality : Fair Rhythm : Atrial Fibrillation INDICATION Non-Ischemic Cardiomyopathy 2D DIMENSIONS RVDd3.3 (2.9-3.5cm)Left Atrium(2D)4.2 (1.6-4.0cm) IVSd1.4 (0.7-1.1cm)Aortic Root(2D)3.5 (2.0-3.7cm) LVDd6.4 (3.9-5.9cm)LVOT Diameter2.6 (1.8-2.4cm) PWd1.3 (0.7-1.1cm)LVDs5.5 (2.5-4.0cm) FS (%) 14.4 %SV62.1 ml Aortic Valve AoV Peak Min.164.5cm/sAoV VTI31.0cm AO Peak GR.10.8mmHgLVOT Peak Min.114.6cm/s LVOT VTI 22.74cmAO Mean GR.6mmHg TYLER (VMAX)3.44qo2DGN (VTI)3.89cm2 Tricuspid Valve TR P. Bhchxuew031la/sRAP AAEQFLUR52rnBs TR Peak Gr.43ahYqMDHF82moFn LEFT VENTRICLE The Left Ventricle is mildly dilated. There is mild concentric left ventricular hypertrophy. Left lynda tricle systolic function is moderately impaired. The Ejection Fraction is estimated at 35%. There is moderate global hypokinesis of the left ventricle. RIGHT VENTRICLE The right ventricle is normal size. The right ventricular systolic function is normal. ATRIA The left atrium is mildly dilated. The right atrium size is normal. The interatrial septum is intact with no evidence for an atrial septal defect or patent foramen ovale as noted on 2-D or Doppler imagi ng. AORTIC VALVE The aortic valve is not well visualized but is functioning normally by Doppler interrogation. Doppler and Color Flow revealed no significant aortic regurgitation. There is no significant aortic valvular stenosis. MITRAL VALVE The mitral valve is normal in structure and function. There is no evidence of mitral valve prolapse. There is no mitral valve stenosis. Doppler and Color-flow revealed mild mitral regurgitation. TRICUSPID VALVE The tricuspid valve is normal in structure and function. Doppler and Color Flow revealed mild tricusp id regurgitation. The PA pressure was estimated at 55 mmHg. There is no tricuspid valve stenosis. PULMONIC VALVE The pulmonic valve is not well visualized. Doppler and Color Flow revealed no pulmonic valvular regur gitation. There is no pulmonic valvular stenosis. GREAT VESSELS The aortic root is normal in size. The ascending aorta is not well seen. The IVC is dilated. PERICARDIAL EFFUSION There is no evidence of significant pericardial effusion. Critical Notification Critical Value: No <Conclusion> The Left Ventricle is mildly dilated. Left ventricle systolic function is moderately impaired. The Ejection Fraction is estimated at 35%. There is moderate global hypokinesis of the left ventricle. There is mild concentric left ventricular hypertrophy. There is no significant aortic valvular stenosis. Doppler and Color-flow revealed mild mitral regurgitation. Doppler and Color Flow revealed mild tricuspid regurgitation. The PA pressure was estimated at 55 mmHg. Signed by : Darnell Murrell MD Electronically Approved : 10/31/2019 16:14:04
--- NOTE | 2019-10-31 16:48 | RAD ---
MR#: [id number] Date of Study: 10/31/2019 Ordering Physician: ILIANA DAVENPORT, Referring Physician: ORIANA CAPELLAN Tech: RT Richie Evangelista) (N) APPROVED REPORT Test Type: Pharmacological Stress Nurse/Tech: RT Tonja (Namrata) (N) Test Indications: nonischemic cardiomyopathy Cardiac History: atrial fibrillation Medications: see ehr Medical History: hypertension, diabetic Resting ECG: a fib Resting Heart Rate: 71 bpm Resting Blood Pressure: 128/91mmHg Nurse/Tech Notes Patient tool metoprolol this am so switched to lexiscan Consent: The procedure was explained to the patient in lay terms. Informed consent was witnessed. Jaxon eout was entered into [facility]. History and Stress Test performed by RT Richie Evangelista) (N) Pharm. Details Pharmacologic stress testing was performed using 0.4mg per 5ml of regadenoson given intravenously ove r 7-10 seconds. POST EXERCISE Reason for Termination: Infusion complete Max HR: 118 bpm Max Blood Pressure: 162/98mmHg INTERPRETATION Stress EKG Conclusion: The resting EKG shows atrial fibrillation with mild nonspecific ST segment diana nges. The stress EKG shows no significant changes from baseline. No EKG evidence of stress-induced ischemia Imaging Protocol IMAGE PROTOCOL: Rest Tc-99m/stress Tc-99m 1 day Rest: Stress: Viability: Radiopharm.Tc99m BktnvwhmqFs17e Sestamibi Dose10.7mCi 32.4mCi Duration 15min. 10min. Img Date 10/31/2019 10/31/2019 Inj-Img Ffht53hkj. 60min. Rest Admin Site:IV - Right AntecubitalAdministrator: RT Richie Evangelista)(N) Stress Admin Site: IV - Right AntecubitalAdministrator: RT Richie Evangelista)(N) STRESS DATA End Diast. Vol.258.0mlAv. Heart Rate79.0bpm End Syst. Vol.152.0mlCO Index BSA0.0L/min Myocardial Kdqz478.0gEject. Bcjiosmv61.0% Stress Rates Pk. Fill Rate1.72EDV/secLVtime Pk. Fill 100.27msec Pk. Empty Rate2.90ESV/secLVtime Pk. Mizzb147.33msec 1/3 Pk. Fill1.21EDV/sec Stress Scores Regional WT1.00Summed WT20.00 Regional WM0.00Summed WM7.00 LV Perfusion The stress scans show an apical defect. The rest scans show an apical defect. Nuclear imaging is suggestive of a previous apical infarct with mild eloise-infarct ischemia. Wall Motion Left ventricular systolic function is mildly decreased at 41% with mild apical septal hypokinesis. LV Perf. Quant 17 Seg. SSS12.00 17 Seg. SRS12.00 17 Seg. SDS1.00 Stress Defect Extent (% LAD)40.60Rest Defect Extent (% LAD)26.30Rev. Defect Extent (% LAD)9.40 Stress Defect Extent (% LCX) 11.30Rest Defect Extent (% LCX)12.50Rev. Defect Extent (% LCX)0.00 Stress Defect Extent (% RCA)17.80Rest Defect Extent (% RCA)18.90Rev. Defect Extent (% RCA)0.00 Stress Defect Extent (% JARETH)32.00Rest Defect Extent (% JARETH)25.20Rev. Defect Extent (% JARETH)5.90 Conclusion 1. No EKG evidence of stress-induced ischemia. 2. Nuclear imaging shows fixed mild apical thinning suggestive of possible previous infarct. There i s slight eloise-infarct ischemia present. 3. Left ventricular function is mildly decreased with apical septal hypokinesis and an ejection fract ion of 41%. 4. Moderate risk Lexiscan nuclear stress test Signed by : Darnell Murrell MD Electronically Approved : 10/31/2019 16:47:30
== END | disposition home or self-care (01) ==
LOC: NM 08:53
PROVIDERS: ATTEND Internal Medicine Cardiovascular Disease
DX: I08.1 Rheumatic disorders of both mitral and tricuspid valves (principal); I25.9 Chronic ischemic heart disease, unspecified; I42.9 Cardiomyopathy, unspecified; I11.9 Hypertensive heart disease without heart failure
CPT/HCPCS: 78452; 93017; 93306; A9500; J2785

== ENCOUNTER 2020-03-12 13:51 | Emergency (ER) | payer OTHER ==
[~2020-03-12] VITALS: Ht 185.4 cm; Wt 140.0 kg
[~2020-03-12 13:51] MED LIST changes: +AMLO-187 PO; -AMLO10TA8 PO; -REGADENOSON 0.4 MG/5 ML DISP.SYRIN. IV ONE
[2020-03-12 14:03] VITALS: BP 107/45
[2020-03-12] MEDS ORDERED: NALO4SPR NS (15:29)
--- NOTE | 2020-03-12 15:29 | PHYS DOC ---
Past History Past Medical History: A-Fib, Diabetes, Hypertension Past Surgical History: Knee Replacement Smoking: Cigarettes, Greater than 1 pack/day, Chew Additional Smoking Information: chew tobacco Alcohol Use: None Drug Use: Benzodiazepine, Marijuana, Opiates Adult General Chief Complaint Chief Complaint: OVERDOSE [facility] Patient is 39-year-old male who presents to the emergency room after an accidental opiate overdose. Patient used some fentanyl around 1:00. He was found unresponsive. He received 2.5 of Narcan prior to arrival and is now alert and oriented. He states he feels back to normal. He has never had an overdose previously. He states that he gets his drugs off the street. Review of Systems Review of Systems Complete ROS is negative unless otherwise documented in HPI Allergies Allergies Allergies Coded Allergies Type Severity Reaction Last Updated Verified No Known Drug Allergies 06/23/18 No Physical Exam Physical Exam General: Awake, alert, NAD. Well Nourished, well hydrated. Cooperative HEENT: Atraumatic, EOMI, PERRL, airway patent, moist oral mucosa Neck: Supple, trachea midline Respiratory: CTA bilaterally, normal effort, no wheezing/crackles CV: RRR, no murmur, cap refill <2 GI: Soft, nondistended, nontender, no masses MSK: No obvious deformities Skin: Warm, dry, intact Neuro: A&O x3, speech NL, sensory and motor grossly intact, no focal deficits Psych: Normal affect, normal mood, not suicidal or homicidal Current Patient Data Vital Signs Vital Signs Date Time Temp Pulse Resp B/P (MAP) Pulse Ox O2 Delivery O2 Flow Rate FiO2 03/12/20 14:03 97.6 55 16 107/45 (65) 96 Room Air EKG EKG [] Radiology/Procedures Radiology/Procedures [] Heart Score Risk Factors: Risk Factors: DM, Current or recent (<one month) smoker, HTN, HLP, family history of CAD, obesity. Risk Scores: Risk Factors: DM, Current or recent (<one month) smoker, HTN, HLP, family history of CAD, obesity. Course & Med Decision Making Course & Med Decision Making Pertinent Labs and Imaging studies reviewed. (See chart for details) Patient is a 39-year-old male who presents to the emergency room after an accidental overdose. Patient is back to baseline at this time. I have discussed with the patient that he should refrain from using opiates. He was observed here in the emergency room for 2 hours after Narcan. Patient had no further symptoms. Patient's test results and vitals while in the ED were fully reviewed and discussed with the patient. Patient is stable and at this time does not need admission to the hospital. We have discussed strict return precautions and the importance of following up with their Primary Care Physician. Patient stated understanding and was given an opportunity to ask any questions. Patient is in agreement with plan. Dragon Disclaimer Dragon Disclaimer This electronic medical record was generated, in whole or in part, using a voice recognition dictation system. Departure Departure: Impression: Primary Impression: Overdose opiate Disposition: 01 DC HOME SELF CARE/HOMELESS Condition: STABLE Referrals: TITO AGUILERA (PCP) Patient Instructions: Narcotic Overdose Scripts Naloxone HCl (Narcan) 4 Mg Maple 1 SPR NS ONCE PRN for overdose for 1 Day, #1 INHALER 0 Refills Prov: KULWINDER MALLOY MD 03/12/20 KULWINDER MALLOY MD Mar 12, 2020 15:29
== END 2020-03-12 16:05 | disposition home or self-care (01) ==
LOC: ER 13:51
DX: T40.601A Poisoning by unspecified narcotics, accidental (unintentional), initial encounter (principal); I48.91 Unspecified atrial fibrillation; E11.9 Type 2 diabetes mellitus without complications; I10 Essential (primary) hypertension; F17.210 Nicotine dependence, cigarettes, uncomplicated; F15.10 Other stimulant abuse, uncomplicated; F12.10 Cannabis abuse, uncomplicated; F11.10 Opioid abuse, uncomplicated; Y92.89 Other specified places as the place of occurrence of the external cause
CPT/HCPCS: 99283

== ENCOUNTER 2020-04-03 10:49 | Emergency (ER) | payer OTHER ==
[~2020-04-03] VITALS: Ht 185.4 cm; Wt 93.2 kg
[~2020-04-03 10:49] MED LIST changes: +NALO4SPR NS
--- NOTE | 2020-04-03 10:55 | PHYS DOC ---
Past History Past Medical History: A-Fib, Diabetes, Hypertension Past Surgical History: Knee Replacement Smoking: Cigarettes, Greater than 1 pack/day, Chew Alcohol Use: None Drug Use: Benzodiazepine, Marijuana, Opiates Adult General HPI HPI Patient is a 39-year-old male who presents via EMS for overdose. Patient was found at home by family member unresponsive for an unknown period of time prompting them to call EMS. On arrival to scene, patient was apneic. Orophary ngeal airway was placed and patient was given 2 mg Narcan with immediate reversal of apneic condition. Patient self removed oropharyngeal airway. Patient exhibited classic behavior status post reversal of narcotic overdose while in route to our facility, did experience x1 episode of nonbloody nonbilious emesis. On arrival, patient alert and oriented x3. Reports feeling cold without any other symptoms Review of Systems Review of Systems Fourteen body systems of review of systems have been reviewed. See HPI for pertinent positives and negative responses, other davis all other systems are negative, non-pertinent or non-contributory Allergies Allergies Allergies Coded Allergies Type Severity Reaction Last Updated Verified No Known Drug Allergies 06/23/18 No Physical Exam Physical Exam Constitutional: Pt is oriented to person, place, and time. Pt appears well-developed and well-nourished. No obvious signs of trauma HEENT: Head: Normocephalic and atraumatic. External ears unremarkable, negative sewell sign Conjunctivae and EOM are normal. Pupils are equal, round, and reactive to light. Oropharynx is clear and moist. No hematomas or lacerations or abrasions to face or scalp OP clear, no blood, no malocclusion, dentition intact Nares clear, no nasal septal hematoma Midface stable Neck: C-spine midline nontender, no step-offs Cardiovascular: Normal rate, regular rhythm and normal heart sounds. Pulmonary/Chest: Effort normal and breath sounds normal. No respiratory distress. No wheezes. CTA bilaterally Abdominal: Soft. Bowel sounds are normal. Pt exhibits no distension. There is no tenderness. Musculoskeletal: No bony tenderness to extremities, no deformities, full ROM extremities Chest wall stable Pelvis stable and non-tender No vertebral TTP and spine without stepoffs Neurological: Pt is alert and oriented to person, place, and time. Moving all extremities willfully, able to wiggle all fingers and toes Alert and oriented x 3 Sensation grossly intact Skin: Skin is warm and dry. No abrasions, no lacerations Psychiatric: Behavior is appropriate for situation Current Patient Data Vital Signs Vital Signs Date Time Temp Pulse Resp B/P (MAP) Pulse Ox O2 Delivery O2 Flow Rate FiO2 04/03/20 13:15 98.8 71 16 96 04/03/20 10:59 133/86 (102) Room Air Lab Results Laboratory Tests Test 04/03/20 10:54 04/03/20 11:05 04/03/20 12:15 Blood Gas pH 7.32 (7.35-7.46) Blood Gas PCO2 51 mmHg (35-46) Blood Gas PO2 67 mmHg (80-100) Blood Gas HCO3 27 mmol/L (21-28) Arterial Bld O2 Saturation (Calc) 92 % (92-99) FiO2 21 % White Blood Count 6.9 x10^3/uL (4.0-11.0) Red Blood Count 4.96 x10^6/uL (4.30-5.70) Hemoglobin 13.1 g/dL (13.0-17.5) Hematocrit 41.2 % (39.0-53.0) Mean Corpuscular Volume 83 fL (79-100) Mean Corpuscular Hemoglobin 26 pg (25-35) Mean Corpuscular Hemoglobin Concent 32 g/dL (31-37) Red Cell Distribution Width 16.1 % (11.5-14.5) Platelet Count 295 x10^3/uL (140-400) Neutrophils (%) (Auto) 54 % (31-73) Lymphocytes (%) (Auto) 33 % (24-48) Monocytes (%) (Auto) 8 % (0-9) Eosinophils (%) (Auto) 4 % (0-3) Basophils (%) (Auto) 1 % (0-3) Neutrophils # (Auto) 3.7 x10^3uL (1.8-7.7) Lymphocytes # (Auto) 2.3 x10^3/uL (1.0-4.8) Monocytes # (Auto) 0.5 x10^3/uL (0.0-1.1) Eosinophils # (Auto) 0.3 x10^3/uL (0.0-0.7) Basophils # (Auto) 0.1 x10^3/uL (0.0-0.2) Sodium Level 142 mmol/L (136-145) Potassium Level 4.0 mmol/L (3.5-5.1) Chloride Level 103 mmol/L (98-107) Carbon Dioxide Level 30 mmol/L (21-32) Anion Gap 9 (6-14) Blood Urea Nitrogen 14 mg/dL (8-26) Creatinine 1.2 mg/dL (0.7-1.3) Estimated GFR (Cockcroft-Gault) 66.7 BUN/Creatinine Ratio 12 (6-20) Glucose Level 296 mg/dL (70-99) Calcium Level 8.7 mg/dL (8.5-10.1) Total Bilirubin 0.5 mg/dL (0.2-1.0) Aspartate Amino Transf (AST/SGOT) 25 U/L (15-37) Alanine Aminotransferase (ALT/SGPT) 29 U/L (16-63) Alkaline Phosphatase 74 U/L (46-116) Troponin I Quantitative < 0.017 ng/mL (0-0.055) Total Protein 7.3 g/dL (6.4-8.2) Albumin 3.7 g/dL (3.4-5.0) Albumin/Globulin Ratio 1.0 (1.0-1.7) Urine Collection Type Unknown Urine Color Yellow Urine Clarity Hazy Urine pH 6.5 Urine Specific [place] 1.025 Urine Protein 100 mg/dl (NEG-TRACE) Urine Glucose (UA) 500 mg/dL (NEG) Urine Ketones (Stick) Neg mg/dL (NEG) Urine Blood Trace (NEG) Urine Nitrite Neg (NEG) Urine Bilirubin Neg (NEG) Urine Urobilinogen Dipstick 0.2 mg/dL (0.2 mg/dL) Urine Leukocyte Esterase Neg (NEG) Urine RBC 6-10 /HPF (0-2) Urine WBC Occ /HPF (0-4) Urine Squamous Epithelial Cells Occ /LPF Urine Bacteria 0 /HPF (0-FEW) Urine Opiates Screen Neg (NEG) Urine Methadone Screen Neg (NEG) Urine Barbiturates Neg (NEG) Urine Phencyclidine Screen Neg (NEG) Urine Amphetamine/Methamphetamine Neg (NEG) Urine Benzodiazepines Screen Neg (NEG) Urine Cocaine Screen Neg (NEG) Urine Cannabinoids Screen Neg (NEG) Urine Ethyl Alcohol Neg (NEG) EKG EKG EKG ordered and interpreted by myself at 1121 hrs. as sinus rhythm at 121 bpm, prolonged QTC at 500 otherwise unremarkable intervals, left axis deviation, no acute ischemic findings, no STEMI Radiology/Procedures Radiology/Procedures EXAM: XR CHEST 1V 04/03/2020 11:00 AM CLINICAL INDICATION: Overdose COMPARISON: Chest radiograph 09/15/2019 TECHNIQUE: AP upright view the chest FINDINGS: Cardiomegaly is unchanged. Lungs are well-expanded. No consolidation, pleural effusion, or pneumothorax. No acute osseous abnormality. IMPRESSION: No acute cardiopulmonary abnormality. Electronically signed by: Stephanie Schneider MD (04/03/2020 11:23 AM) [id number] Heart Score HEART Score for Chest Pain: HEART Score for Chest Pain Response (Comments) Value History Slighlty/Non-Suspicious 0 ECG Normal 0 Age < 45 0 Risk Factors 1 or 2 Risk Factors 1 Troponin < Normal Limit 0 Total 1 Risk Factors: Risk Factors: DM, Current or recent (<one month) smoker, HTN, HLP, family history of CAD, obesity. Risk Scores: Risk Factors: DM, Current or recent (<one month) smoker, HTN, HLP, family history of CAD, obesity. Course & Med Decision Making Course & Med Decision Making Pertinent Labs and Imaging studies reviewed. (See chart for details) Discussed most likely diagnosis of acute narcotic overdose that was appropriately reversed with Narcan given in the field. KTRA review shows that patient has been consistently prescribed oxycodone HCL 10 mg tablets 3 times daily with recent fill date 03/27/2020. Patient monitored in our ER with continual improvement in overall presentation and respiratory status. I discussed with patient utility in observation but he declined. Reports he has had numerous overdoses in the past, most recent was approximately 1 month ago. Denies ever being intubated. I addressed fact that patient's UDS was negative for opiates given prescription for opiate pain medication, I cannot explain this discrepancy. Patient to call his primary care physician to discuss ER visit today and need to decrease current pain control regimen as it is clearly too strong for him to handle. I did offer patient prescription for Narcan for as needed use for respiratory depression or others to use in the event of additional accidental overdose, he agreed and wanted this. Ultimately, patient hemodynamically stable, ambulatory, and wanting to be discharged. Strict return precautions discussed with good understanding. All questions and concerns addressed prior to ER departure in improved condition Dragon Disclaimer [place] Disclaimer This electronic medical record was generated, in whole or in part, using a voice recognition dictation system. Departure Departure: Impression: Primary Impression: Narcotic overdose Additional Impression: Acute respiratory failure with hypoxia and hypercapnia Disposition: 01 DC HOME SELF CARE/HOMELESS Condition: IMPROVED Referrals: TITO AGUILERA (PCP) Patient Instructions: Overdose, Accidental Additional Instructions: As discussed prior to ER departure, please call your PCP immediately after ER departure to discuss current narcotic schedule. It is evident that your current scheduled dose of narcotics is too strong by your prior x2 overdoses in the past 30 days. These were life-threatening events that if untreated, could have resulted in . As such, I recommend you call your primary care physician immediately to review need to decrease scheduled daily dose. In addition, I have prescribed you Narcan use for as needed use for respiratory depression/concern for overdose. Please keep this with you at all times. If any concerning signs or symptoms present prior to outpatient follow-up please do not hesitate to come back for repeat evaluation and intervention as needed. Is a pleasure to take care of you and I wish you the best going forward Scripts Naloxone HCl (Narcan) 4 Mg [place] 1 SPR NS ONCE for RESPIRATORY DEPRESSION for 14 Days, #1 INHALER 0 Refills Prov: VINCE PALMA DO 04/03/20 Problem Qualifiers VINCE PALMA DO Apr 03, 2020 10:55
[2020-04-03] MEDS ORDERED: IV NORMAL SALINE 1,000ML 1,000 ML IV ONE (11:00)
[2020-04-03 11:17] LABS: BASO # 0.1 x10^3/uL (0.0-0.2); BASO % 1 % (0-3); EOS # 0.3 x10^3/uL (0.0-0.7); EOS % 4 % (0-3); HEMATOCRIT 41.2 % (39.0-53.0); HEMOGLOBIN 13.1 g/dL (13.0-17.5); LYMPH # 2.3 x10^3/uL (1.0-4.8); LYMPH % 33 % (24-48); MEAN CORPUSCULAR HEMOGLOBIN 26 pg (25-35); MEAN CORPUSCULAR HGB CONC 32 g/dL (31-37); MEAN CORPUSCULAR VOLUME 83 fL (79-100); MONO # 0.5 x10^3/uL (0.0-1.1); MONO % 8 % (0-9); NEUT # 3.7 x10^3uL (1.8-7.7); NEUT % 54 % (31-73); PLATELET COUNT 295 x10^3/uL (140-400); RED BLOOD COUNT 4.96 x10^6/uL (4.30-5.70); RED CELL DISTRIBUTION WIDTH 16.1 % (11.5-14.5); WHITE BLOOD COUNT 6.9 x10^3/uL (4.0-11.0)
--- NOTE | 2020-04-03 11:25 | RAD ---
EXAM: XR CHEST 1V 04/03/2020 11:00 AM CLINICAL INDICATION: Overdose COMPARISON: Chest radiograph 09/15/2019 TECHNIQUE: AP upright view the chest FINDINGS: Cardiomegaly is unchanged. Lungs are well-expanded. No consolidation, pleural effusion, or pneumothorax. No acute osseous abnormality. IMPRESSION: No acute cardiopulmonary abnormality. Electronically signed by: Stephanie Schneider MD (04/03/2020 11:23 AM) [id number]
[2020-04-03 11:32] LABS: CALCIUM 8.7 mg/dL (8.5-10.1); CREATININE 1.2 mg/dL (0.7-1.3); GFR 66.7
[2020-04-03 11:37] LABS: ALBUMIN 3.7 g/dL (3.4-5.0); TOTAL BILIRUBIN 0.5 mg/dL (0.2-1.0); TOTAL PROTEIN 7.3 g/dL (6.4-8.2)
[2020-04-03 12:11] LABS: BGAS PH 7.32 (7.35-7.46)
--- NOTE | 2020-04-03 12:20 | EKG ---
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
[2020-04-03 12:42] LABS: BARBITURATES NEG (NEG); BENZODIAZEPINES NEG (NEG); CANNABINOIDS NEG (NEG); COCAINE NEG (NEG); METHADONE NEG (NEG); OPIATES NEG (NEG); PHENCYCLIDINE NEG (NEG)
[2020-04-03 12:46] LABS: AMPHETAMINE/METHAMPHETAMINE NEG (NEG)
[2020-04-03 12:57] LABS: BILIRUBIN,URINE NEG (NEG); CLARITY,URINE HAZY; COLOR,URINE YELLOW; GLUCOSE,URINE 500 mg/dL (NEG); NITRITE,URINE NEG (NEG); UROBILINOGEN,URINE 0.2 mg/dL (0.2 mg/dL)
[2020-04-03 12:58] LABS: BACTERIA,URINE 0 /HPF (0-FEW); SQUAMOUS EPITHELIAL CELL,UR OCC /LPF; WBC,URINE OCC /HPF (0-4)
[2020-04-03] MEDS ORDERED: NALO4SPR NS (13:02)
[2020-04-03 13:15] VITALS: BP 130/66
== END 2020-04-03 13:10 | disposition home or self-care (01) ==
LOC: ER 10:49
DX: T40.601A Poisoning by unspecified narcotics, accidental (unintentional), initial encounter (principal); J96.01 Acute respiratory failure with hypoxia; J96.02 Acute respiratory failure with hypercapnia; R11.10 Vomiting, unspecified; I48.91 Unspecified atrial fibrillation; E11.9 Type 2 diabetes mellitus without complications; I10 Essential (primary) hypertension; F17.220 Nicotine dependence, chewing tobacco, uncomplicated; Y92.89 Other specified places as the place of occurrence of the external cause
CPT/HCPCS: 36415; 36600; 71045; 80053; 80307; 81001; 82803; 84484; 85025; 93005; 96360; 99285; J7030

== ENCOUNTER 2021-08-23 16:22 | Emergency (ER) | payer OTHER ==
[~2021-08-23] VITALS: Ht 185.4 cm; Wt 93.2 kg
[2021-08-23 16:22] VITALS: BP 161/92
[~2021-08-23 16:22] MED LIST changes: -BUPR-192 PO; +BUPR150T21 PO
--- NOTE | 2021-08-23 16:30 | PHYS DOC ---
Past History Past Medical History: A-Fib, Diabetes Past Surgical History: Other Additional Past Surgical Histo: left knee surgery Smoking: Cigarettes, Greater than 1 pack/day, Chew Alcohol Use: None Drug Use: Benzodiazepine, Marijuana, Opiates General Adult EDM: Chief Complaint: DRUG ABUSE HPI: HPI: Patient is a 41-year-old male who presents with desire to stop abusing opioids. He has been abusing opioids for years. He sees pain management physician in [place], he receives monthly prescriptions of 10 mg Percocet. He admits that he abuses these, runs out frequently within the first week or 2 of having them prescribed. He also admits to using street fentanyl. He has overdosed on opioids 3 times, accidentally. He reports that his mother told him to come to the ER to seek care so he can get resources to stop abusing opioids. He denies SI or HI symptoms. He is calm and cooperative. He denies that he has been engaging in other self-harm behaviors. He denies use of other illicit drugs. He denies use of heroin or IV drugs. He denies use of alcohol. He denies symptoms of withdrawal, denies chest pain, dyspnea, abdominal pain, nausea, vomiting, diarrhea. He has multiple other chronic health issues including high cholesterol, hypertension, atrial fibrillation, he is compliant with all medications, including anticoagulants. He denies any recent trauma or injury of any kind. He has reached out to Narcotics Anonymous and to one of the counseling centers here locally, but he has not heard back for an appointment. He would like some resources so that he can stop abusing opioids. He admits that he has never mentioned his opioid misuse and street opioid use to his primary care physician, nor to his pain management physician. It sounds like he is prescribed opiates chronically for chronic arthritis issues. Review of Systems: Review of Systems: As per HPI Allergies: Allergies: Allergies Coded Allergies Type Severity Reaction Last Updated Verified No Known Drug Allergies 06/23/18 No Physical Exam: PE: Constitutional: Well developed, well nourished, no acute distress, non-toxic appearance. [] HENT: Normocephalic, atraumatic, oropharynx is patent and clear. Mucous membranes are moist. External ears normal bilaterally Eyes: PERRL, EOMI, conjunctiva normal, no discharge. [] Neck: Normal range of motion, no tenderness, supple, no stridor. Trachea is midline. No meningismus. Cardiovascular:Heart rate regular rhythm, +2 radial pulses bilaterally Lungs & Thorax: Bilateral breath sounds clear to auscultation [] Abdomen: Abdomen is obese, soft, nondistended, nontender to palpation Skin: Warm, dry, no erythema, superficial abrasions of bilateral forearms. No warmth, no swelling, no fluctuance, no track barraza. Back: No tenderness, no CVA tenderness. [] Extremities: No tenderness, no cyanosis, no clubbing, ROM intact, no edema. No calf tenderness. Neurologic: Alert and oriented X 3, normal motor function, normal sensory function, no focal deficits noted. [] Psychologic: Affect is somewhat anxious, he is overall cooperative and pleasant. He adamantly denies SI or HI symptoms. EKG: EKG: [] Radiology/Procedures: Radiology/Procedures: [] Heart Score: C/O Chest Pain: No Risk Factors: Risk Factors: DM, Current or recent (<one month) smoker, HTN, HLP, family history of CAD, obesity. Risk Scores: Score 0 - 3: 2.5% MACE over next 6 weeks - Discharge Home Score 4 - 6: 20.3% MACE over next 6 weeks - Admit for Clinical Observation Score 7 - 10: 72.7% MACE over next 6 weeks - Early Invasive Strategies Course & Med Decision Making: Course & Med Decision Making The patient was seen by the PAT team. He is given multiple outpatient re sources. I did discuss that he should engage in for MAT treatment services and should consider the use of buprenorphine. He is given resources for this. I told him that he must be honest with his primary care physician. He has an appointment in 2 weeks to see his PCP and his pain management physician. I explained that he must be honest with him about his opioid use disorder. Currently, he manifests no evidence of acute severe intoxication, manifest no evidence of acute withdrawal. He is hemodynamically stable. He adamant denies SI or HI. He agrees to contact these resources he is given. There is no indication for invasive exams, labs, imaging or hospitalization at this time based on current clinical presentation. Very strict return precautions are given. He verbalized understanding. [place] Disclaimer: [place] Disclaimer: This electronic medical record was generated, in whole or in part, using a voice recognition dictation system. Departure Departure: Impression: Primary Impression: Opioid abuse Disposition: HOME / SELF CARE / HOMELESS Condition: STABLE Referrals: TITO AGUILERA (PCP) Patient Instructions: Alcohol and Drug Addiction, Finding Treatment, Drug Abuse, FAQs, Opiate Dependence Additional Instructions: Please return to the ER if you have any concerns for your safety, if you develop severe nausea and vomiting symptoms, dehydration, if you are acutely injured, if you develop chest pain, shortness of breath, temperature of 100.4 or higher, tremors, shaking, seizures or any other concerns. Please contact your primary care doctor on Wednesday to discuss this issue further. Keep any scheduled appointments to help with your primary care physician and your pain management physician. I do strongly recommend you be honest with your pain management doctor about your opiate abuse, so that can help you the best that they can. Please reach out to the resources you are given here today. Scripts Naloxone HCl (Naloxone HCl) 4 Mg [place] 4 MG NS PRN once for opiate overdose, #1 SPRAY 2 Refills 2 pack Prov: YOUSIF HERIRNG DO 08/23/21 YOUSIF HERRING DO August 23, 2021 16:29
[2021-08-23] MEDS ORDERED: NALO4SPR3 NS (17:08)
== END 2021-08-23 17:03 | disposition home or self-care (01) ==
LOC: ER 16:22
DX: F11.10 Opioid abuse, uncomplicated (principal); I48.91 Unspecified atrial fibrillation; E11.9 Type 2 diabetes mellitus without complications; F17.210 Nicotine dependence, cigarettes, uncomplicated; F17.220 Nicotine dependence, chewing tobacco, uncomplicated; F12.10 Cannabis abuse, uncomplicated; F19.10 Other psychoactive substance abuse, uncomplicated
CPT/HCPCS: 99283